=== PATIENT | female | born 1990 | race Caucasian/White ===

== ENCOUNTER 2018-12-27 11:18 | Emergency (ER) | payer BC, SELFPAY ==
[2018-12-27 11:19] VITALS: BP 142/99; PULSE 118; RESP 20; TEMP 37.9; O2SAT 99; BMI 30.1
--- NOTE | 2018-12-27 11:36 | HMH.EDUTC ---
[facility] [place] Impression: Strep pharyngitis Disposition: Home, Self-Care Condition on Discharge: Good Instructions: DI for Strep Throat Prescriptions: Amoxicillin/Potassium Clav [Amox-Clav 875-125 mg Tablet] 1 tab PO BID #20 tab Referrals: Provider,Referral, [Primary Care Provider] - Time of Disposition: 11:38 Medical Decision Making - Brian Inquiry Pt receiving controlled substance: No Vital Signs: 12/27/18 11:19 Temperature 100.2 F H Temperature Source Oral Pulse Rate [Left Radial] 118 H Respiratory Rate 20 Blood Pressure [Right Arm] 142/99 H Blood Pressure Mean [Right Arm] 113 Blood Pressure Source [Right Arm] Automatic Cuff Blood Pressure Position [Right Arm] Sitting 02 Sat by Pulse Oximetry 99 Oxygen Delivery Method Room Air - Lab Data Lab results reviewed: Yes: I reviewed the patient's lab results. [facility] - General Stated complaint: sore thoat, headache, ear pain Time Seen by Provider: 12/27/18 11:36 Mode of Arrival: Ambulatory Source of Information: Patient Limitations: No Limitations Description of Symptoms (Recalled from Triage Doc. by RN): sore throat, headache, ears hurt HEENT Symptoms (Recalled from RN notes): Yes Resp Symptoms (Recalled from RN notes): No Skin Symptoms (Recalled from RN notes): No MS Symptoms (Recalled from RN notes): No Functional Status (Recalled from RN notes): wnl - History of Present Illness Provider Complaint: Sore throat, headache and ear pain X 2 days. Has fever. Body aches and muscle soreness. No cough. No vomiting or diarrhea. Onset (ago): day(s) (2) Location: mouth Relieving factors: none Exacerbating factors: none Associated symptoms: fever/chills, malaise Treatments prior to arrival: none - Related Data Previous Rx's Medication Instructions Recorded Amoxicillin/Potassium Clav 1 tab PO BID #20 tab 12/27/18 [Amox-Clav 875-125 mg Tablet] Allergies Allergy/AdvReac Type Severity Reaction Status Date / Time No Known Allergies Allergy Verified 04/02/18 19:00 - Worker's Comp Is this a Worker's Comp case?: No [facility] History - Hepatitis A Screen Drug use history?: No High risk sexual behaviors?: No History of sexually transmitted infection?: No Currently employed?: No Childcare worker?: No Do you have indoor plumbing?: Yes Do you have electricity?: Yes Attestation statement:: This patient has been screened for Hepatitis A risk factors. I have reviewed the patient's past medical history: Yes Medical History: Denies:: Cancer, Diabetes Mellitus Type 1, Diabetes Mellitus Type 2, MRSA Amputation: No Fractures: No - Social History Educational Level: Completed High School Smoking Status: Current every day smoker Tobacco Type: cigarettes # Packs/Day (cigarettes): 1 Alcohol Intake: never Occupational Status: other Housing: house - Psychiatric History Expresses thoughts of harming self/others: None Suicide Plan Description: No Plan ROS Obtained: Yes All systems reviewed & no additional complaints - Constitutional Constitutional: Reports fever(s), Reports headache(s), Reports malaise - ENT Ears, Nose, Mouth, and Throat: Reports sore throat Physical Exam - General General appearance: alert, in no apparent distress - Head Head exam: atraumatic, normocephalic, normal inspection - Eye Eye exam: Present: normal appearance, PERRL, EOMI - ENT ENT exam: Present: normal exam, normal oropharynx, mucous membranes moist, TM's normal bilaterally, normal external ear exam - Expanded ENT Exam Throat exam: Present: tonsillar erythema, tonsillomegaly, tonsillar exudate - Neck Neck exam: Present: normal inspection, full ROM, trachea midline. Absent: meningismus, lymphadenopathy - Chest Chest inspection: Present: normal inspection, symmetric chest wall rise. Absent: tenderness - Respiratory Respiratory exam: Present: normal lung sounds bilaterally. Absent: respiratory distress - Cardiova
[2018-12-27 11:38] LABS: UTC Strep Screen (Rapid) Positive (Negative)
--- NOTE | 2018-12-27 11:39 | ED_ITS ---
[facility] – [place] Clinical Impression: Strep pharyngitis Disposition: Home, Self-Care Condition on Discharge: Good Instructions: DI for Strep Throat Prescriptions: Amoxicillin/Potassium Clav [Amox-Clav 875-125 mg Tablet] 1 tab PO BID #20 tab Referrals: Provider,Referral, [Primary Care Provider] - Time of Disposition: 11:38 Medical Decision Making - Brian Inquiry Pt receiving controlled substance: No Vital Signs: 12/27/18 11:19 Temperature 100.2 F H Temperature Source Oral Pulse Rate [Left Radial] 118 H Respiratory Rate 20 Blood Pressure [Right Arm] 142/99 H Blood Pressure Mean [Right Arm] 113 Blood Pressure Source [Right Arm] Automatic Cuff Blood Pressure Position [Right Arm] Sitting 02 Sat by Pulse Oximetry 99 Oxygen Delivery Method Room Air - Lab Data Lab results reviewed: Yes: I reviewed the patient's lab results. [facility] [place] HPI - General Stated complaint: sore thoat, headache, ear pain Time Seen by Provider: 12/27/18 11:36 Mode of Arrival: Ambulatory Source of Information: Patient Limitations: No Limitations Description of Symptoms (Recalled from Triage Doc. by RN): sore throat, headache, ears hurt HEENT Symptoms (Recalled from RN notes): Yes Resp Symptoms (Recalled from RN notes): No Skin Symptoms (Recalled from RN notes): No MS Symptoms (Recalled from RN notes): No Functional Status (Recalled from RN notes): wnl - History of Present Illness Provider Complaint: Sore throat, headache and ear pain X 2 days. Has fever. Body aches and muscle soreness. No cough. No vomiting or diarrhea. Onset (ago): day(s) (2) Location: mouth Relieving factors: none Exacerbating factors: none Associated symptoms: fever/chills, malaise Treatments prior to arrival: none - Related Data Previous Rx's Medication Instructions Recorded Amoxicillin/Potassium Clav 1 tab PO BID #20 tab 12/27/18 [Amox-Clav 875-125 mg Tablet] Allergies Allergy/AdvReac Type Severity Reaction Status Date / Time No Known Allergies Allergy Verified 04/02/18 19:00 - Worker's Comp Is this a Worker's Comp case?: No [facility] History - Hepatitis A Screen Drug use history?: No High risk sexual behaviors?: No History of sexually transmitted infection?: No Currently employed?: No Childcare worker?: No Do you have indoor plumbing?: Yes Do you have electricity?: Yes Attestation statement:: This patient has been screened for Hepatitis A risk factors. I have reviewed the patient's past medical history: Yes Medical History: Denies:: Cancer, Diabetes Mellitus Type 1, Diabetes Mellitus Type 2, MRSA Amputation: No Fractures: No - Social History Educational Level: Completed High School Smoking Status: Current every day smoker Tobacco Type: cigarettes # Packs/Day (cigarettes): 1 Alcohol Intake: never Occupational Status: other Housing: house - Psychiatric History Expresses thoughts of harming self/others: None Suicide Plan Description: No Plan ROS Obtained: Yes All systems reviewed & no additional complaints - Constitutional Constitutional: Reports fever(s), Reports headache(s), Reports malaise - ENT Ears, Nose, Mouth, and Throat: Reports sore throat Physical Exam - Ge
[2018-12-27 11:45] VITALS: BP 142/99; PULSE 118; RESP 20; TEMP 37.9; O2SAT 99
== END 2018-12-27 11:47 | disposition home or self-care (01) ==
PROVIDERS: Emergency Provider Physician Assistant
DX: J02.0 Streptococcal pharyngitis (principal); F17.210 Nicotine dependence, cigarettes, uncomplicated
CPT/HCPCS: 87880; 99201

== ENCOUNTER 2020-06-07 01:17 | Inpatient (IN) | payer BC, SELFPAY ==
[2020-06-07] VITALS (35 sets, daily range): BP systolic 111–206; BP diastolic 54–101; PULSE 49–97; RESP 14–20; TEMP 36.7–37; O2SAT 91–99; BMI 41.9
--- NOTE | 2020-06-07 01:51 | CT_ITS ---
PROCEDURE: CT HEAD/BRAIN WO CON CLINICAL INDICATION: headache persistent Headache, persistent headache, severe headache COMPARISON: No exams were available for comparison TECHNIQUE: Axial images obtained. All CT scans at the facility use one or more dose reduction, viz: automated exposure control, ma/kV adjustment per patient size (including targeted exams where dose is matched to indication, i.e. head), or iterative reconstruction technique. FINDINGS: No midline shift, mass effect, intracranial hemorrhage, hydrocephalus, or extra-axial fluid collection is evident. The calvarium has an unremarkable appearance. No mastoid effusion. No sinus air-fluid level evident. 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 IMPRESSION: No acute intracranial finding Dictated by: Daniel Aguirre MD 06/07/2020 11:39 Daniel Aguirre MD in [place] 06/07/2020 11:39
[2020-06-07 02:13] LABS: Basophils # 0.1 K/mm3 (0-0.2); Basophils % 0.5 % (0.1-2.0); Eosinophils # 0.2 K/mm3 (0.0-0.4); Eosinophils % 1.4 % (0.1-12.0); Hematocrit 34.3 % (37.0-47.0); Hemoglobin 11.1 g/dL (12.2-16.2); Lymphocytes # 1.9 K/mm3 (0.7-4.5); Lymphocytes % 16.7 % (10-50); Mean Corpuscular HGB Conc 32.5 g/dL (31.8-35.4); Mean Corpuscular Hemoglobin 28.9 pg (27.0-31.2); Mean Corpuscular Volume 88.9 fl (81-99); Mean Platelet Volume 8.8 fl (7.4-10.4); Monocytes # 0.6 K/mm3 (0.1-1.0); Neutrophils # 8.7 K/mm3 (1.8-7.8); Neutrophils % 76.5 % (37.0-80.0); Platelet Count 284 K/mm3 (142-424); Red Blood Count 3.86 M/mm3 (4.20-5.40); Red Cell Distribution Width 15.3 % (11.5-17.5); White Blood Count 11.4 K/mm3 (4.8-10.8)
[2020-06-07 02:13] LABS: Microscopic, Urine URINE MICROSCOPIC (MICROSCOPIC)
[2020-06-07 02:24] LABS: Alanine Aminotransferase 28 U/L (12-78); Albumin Level 3.2 g/dl (3.5-5.0); Albumin/Globulin Ratio 1.1 (1.1-1.8); Alkaline Phosphatase 165 U/L (38-126); Anion Gap 8.6 mEq/L (5-15); Aspartate Amino Transferase 27 U/L (14-36); Bilirubin,Total 0.2 mg/dl (0.2-1.3); Blood Urea Nitrogen 12 mg/dl (7-17); Calcium 8.6 mg/dl (8.4-10.2); Carbon Dioxide 26 mmol/L (22.0-30.0); Chloride 109 mmol/L (98-107); Creatinine Clearance Estimated 68 mL/min (50-200); Estimated Glomerular Filt Rate 73 ml/min (>60); GFR (African American) 88 ML/MIN (>60); Glucose 103 mg/dl (74-100); Potassium 3.6 mmoL/L (3.5-5.1); Sodium 140 mmol/L (136-145); Total Protein,Serum 6.2 g/dl (6.3-8.2)
[2020-06-07 02:25] LABS: Appearance,Urine CLOUDY (Clear); Bilirubin,Urine Negative (Negative); Blood, Urine 3+ (Negative); Color,Urine YELLOW (Yellow); Glucose,Urine (UA) Negative (Negative); Ketones,Urine Negative (Negative); Leukocyte Esterase,Urine 1+ (Negative); Nitrate,Urine Negative (Negative); Protein,Urine 1+ (Negative); Specific Gravity, Urine 1.025 (1.005-1.030); Urobilinogen,Urine 0.2 EU/dl (0.2)
[2020-06-07 02:26] LABS: Activated Partial Thrombo Time 27.4 seconds (23.6-34.0); INR 1.01 (0.9-1.1); Prothrombin Time 11.2 seconds (9.4-11.8)
[2020-06-07 02:30] LABS: RBC,Urine 20-50 #/hpf (0-3); WBC,Urine 50-100 #/hpf (0-3)
[2020-06-07 02:46] LABS: Creatinine,Urine Random 69 mg/dL (Not Estab.); Microalbumin/Creatinine Ratio 477.9
--- NOTE | 2020-06-07 02:58 | PC.NURSE ---
Khuhsbu speaking to at this time in regards to admission
--- NOTE | 2020-06-07 03:02 | HMH.EDGENADL ---
ED Disposition Clinical Impression: Headache Qualifiers: Intractability: intractable Pre-eclampsia Qualifiers: Trimester: unspecified trimester Qualified Code(s): O14.90 - Unspecified pre-eclampsia, unspecified trimester Disposition: Admitted As Inpatient Condition on Discharge: Undetermined Referrals: PCP,No [Primary Care Provider] - - Critical Care Critical Care Time: No Attestation: On 06/07/20, the high probability of a clinically significant, sudden or life threatening deterioration of the following system(s) required my full and direct attention, intervention and personal management. The time I documented below is in addition to time spent performing reported procedures but includes the following listed in this critical care notation. Medical Decision Making - Brian Inquiry Pt receiving controlled substance: No Vital Signs: 06/07/20 01:18 06/07/20 02:32 06/07/20 02:52 Temperature 98.5 F Temperature Source Oral Pulse Rate [Left Radial] 65 69 49 L Respiratory Rate 17 16 14 Blood Pressure [Right Arm] 168/87 H 161/91 H 158/94 H Blood Pressure Mean [Right Arm] 114 114 115 Blood Pressure Source [Right Arm] Automatic Cuff Automatic Cuff Automatic Cuff Blood Pressure Position [Right Arm] Supine Supine Supine 02 Sat by Pulse Oximetry 95 93 L 92 L Oxygen Delivery Method Room Air Room Air Room Air - Lab Data Lab Results 06/07/20 01:49: Urine Color Yellow, Urine Appearance Cloudy, Urine pH 7.0, Ur Specific [place] 1.025, Urine Protein 1+, Urine Glucose (UA) Negative, Urine Ketones Negative, Urine Blood 3+, Urine Nitrate Negative, Urine Bilirubin Negative, Urine Urobilinogen 0.2, Ur Leukocyte Esterase 1+ A, Urine RBC 20-50, Urine WBC 50-100, Ur Squamous Epith Cells 10-20 06/07/20 01:49: Urine Creatinine 69, Urine Microalbumin 329.800 H, Microalb/Creat Ratio 477.9 06/07/20 01:55: WBC 11.4 H, RBC 3.86 L, Hgb 11.1 L, Hct 34.3 L, MCV 88.9, MCH 28.9, MCHC 32.5, RDW 15.3, Plt Count 284, MPV 8.8, Neut % (Auto) 76.5, Lymph % (Auto) 16.7, Dale % (Auto) 5.0, Eos % (Auto) 1.4, Baso % (Auto) 0.5, Neut # (Auto) 8.7 H, Lymph # (Auto) 1.9, Dale # (Auto) 0.6, Eos # (Auto) 0.2, Baso # (Auto) 0.1 06/07/20 01:55: PT 11.2, INR 1.01, APTT 27.4 06/07/20 01:55: Sodium 140, Potassium 3.6, Chloride 109 H, Carbon Dioxide 26, Anion Gap 8.6, BUN 12, Creatinine 0.90, Estimated Creat Clear 68, Estimated GFR 73, Est GFR ( Amer) 88, Glucose 103 H, Calcium 8.6, Total Bilirubin 0.2, AST 27, ALT 28, Alkaline Phosphatase 165 H, Total Protein 6.2 L, Albumin 3.2 L, Globulin 3.0, Albumin/Globulin Ratio 1.1 Result diagrams: 06/07/20 01:55 06/07/20 01:55 Orders (Tests/Meds): ED MEDICATIONS Generic Name Dose Route Start Last Admin Trade Name Freq PRN Reason Stop Dose Admin Lactated Ringer's 1,000 mls @ 999 mls/hr 06/07/20 02:00 06/07/20 01:58 Lactated Ringer's 1000 Ml Bag IV 06/07/20 03:00 999 mls/hr .[id number] HERMAN Administration Magnesium Sulfate 2 gm/ Sodium 104 mls @ 100 mls/hr 06/07/20 02:31 06/07/20 02:37 Chloride IV 06/07/20 03:33 100 mls/hr ONCE ONE Administration Discontinued Medications Generic Name Dose Route Start Last Admin Trade Name Freq PRN Reason Stop Dose Admin Diphenhydramine HCl 50 mg 06/07/20 01:51 06/07/20 01:58 Diphenhydramine 50mg/Ml Vial IV 06/07/20 01:52 50 mg ONCE ONE Administration Hydralazine HCl 5 mg 06/07/20 02:30 06/07/20 02:37 Hydralazine 20mg/Ml Vial IV 06/07/20 02:31 5 mg ONCE ONE Administration Prochlorperazine Edisylate 10 mg 06/07/20 01:51 06/07/20 01:58 Prochlorperazine 10mg/2ml Vial IV 06/07/20 01:52 10 mg ONCE ONE Administration ORDERS Category Date Time Status CT head/brain wo con Stat Cat Scan 06/07/20 01:51 Taken Covid-19 IgG/IgM ([facility]) Stat Lab 06/07/20 02:58 Ordered Urine Culture Stat Micro 06/07/20 01:49 Received - CT Data CT Scan: Head Time Received: 02:[address] Reviewed: Yes: I have viewed the radi
--- NOTE | 2020-06-07 03:30 | INFXCTL.NOTE ---
Report received from MattRN
[2020-06-07 03:36] LABS: Coronavirus 19 IgG Antibody Negative (Negative)
[2020-06-07 03:37] LABS: Coronavirus 19 IgM Antibody Negative (Negative)
[2020-06-07 04:04] LABS: Magnesium 1.9 mg/dl (1.6-2.3)
[2020-06-07 04:11] LABS: Barbiturates Screen,Urine Negative ng/ml (<200); Benzodiazepines Screen,Urine Negative ng/ml (<200)
[2020-06-07 04:12] LABS: Amphetamine/Metha Screen,Urine Negative ng/ml (<1000); Cocaine Screen,Urine Negative ng/ml (<300)
[2020-06-07 04:13] LABS: Methadone Screen,Urine Negative ng/ml (<300)
[2020-06-07 04:14] LABS: Cannabinoid Screen,Urine Positive ng/ml (<50); Opiate Screen,Urine Negative ng/ml (<300)
[2020-06-07 04:15] LABS: Phencyclidine Screen,Urine Negative ng/ml (<25)
--- NOTE | 2020-06-07 05:03 | PC.NURSE ---
O2 applied at 2L NC to maintain O2 sats >90%
--- NOTE | 2020-06-07 05:05 | PC.NURSE ---
Hydralazoine given per protocol, see MAR
--- NOTE | 2020-06-07 06:04 | PC.NURSE ---
RT at bs to perform EKG
--- NOTE | 2020-06-07 06:06 | ECG_ITS ---
APPROVED REPORT Exam: Resting ECG HR:63 bpm ECG Measurements Heart Rate 63 AXES MS 160 P 49 QRSd 94 QRS 44 QT 460 T 35 QTc 470 Conclusion Normal sinus rhythm T wave abnormality, consider anterior ischemia Prolonged QT Abnormal ECG Electronically signed by : Byod Mccoy, 06/07/2020 21:07:25
--- NOTE | 2020-06-07 07:00 | PC.NURSE ---
Ice Pack provided for headache
--- NOTE | 2020-06-07 07:30 | PC.NURSE ---
Report given to Robe RN
--- NOTE | 2020-06-07 08:45 | P.CONPHA_ITS ---
[facility] Pharmacy VTE Monitoring - Patient Demographics Admission date: 06/07/20 Report Date: 06/07/20 Time: 08:45 Allergies/Adverse Reactions: Patient Allergies No Known Allergies Allergy (Verified 06/07/20 08:22) Height: 1.55 m Weight: 100.698 kg Patient Problems: Current Active Problems Headache (Acute) Pre-eclampsia (Acute) - VTE Risk Labs: VTE Related Lab Results Hgb 11.1 g/dL (12.2-16.2) L 06/07/20 01:55 Hct 34.3 % (37.0-47.0) L 06/07/20 01:55 Plt Count 284 K/mm3 (142-424) 06/07/20 01:55 PT 11.2 seconds (9.4-11.8) 06/07/20 01:55 INR 1.01 (0.9-1.1) 06/07/20 01:55 APTT 27.4 seconds (23.6-34.0) 06/07/20 01:55 BUN 12 mg/dl (7-17) 06/07/20 01:55 Creatinine 0.90 mg/dl (0.52-1.04) 06/07/20 01:55 Estimated Creat Clear 68 mL/min (50-200) 06/07/20 01:55 Was VTE Risk Assessment Performed: Yes VTE Score: 2 VTE Risk Level: Low Risk - Prophylaxis VTE Prophylaxis Ordered?: Yes Types of VTE Prophylaxis: TEDS Knee High Location of Applied Device: Bilateral Lower Extremeties
--- NOTE | 2020-06-07 08:46 | PC.NURSE ---
Addendum entered by Maira Dhaliwal RN 06/07/20 09:59: PT WITHOUT VISUAL DISTURBANCE Original Note: DTRS 1+ BILATERAL LEGS, 1+ CLONUS LEFT LEG. PT DENIES NAUSEA/VOMITING. NO EPIGASTRIC PAIN. PT REPORTS INCREASED HEADACHE WHEN ASSISTED TO BATHROOM. IMPROVED UPON RETURNING TO BED. PT AMBULATED WELL. NO NEEDS AT THIS TIME. CALL LIGHT WITHIN REACH
--- NOTE | 2020-06-07 09:48 | PC.NURSE ---
DR. SCHROEDER UPDATED ON PT AT THIS TIME, B/P HAVE REMAINED ABOUT THE SAME SINCE 0700, ORDERS FOR PROCARDIA XL 30MG PO EVERY 12 HOURS, ORDERS FOR PAIN MEDICATION FOR HEADACHE. STATES SHE WILL BE AROUND LATER TO SEE PT.
--- NOTE | 2020-06-07 11:17 | PC.NURSE ---
PT GIVEN HYDRALAZINE 5MG IV PUSH OVER 3 MINUTES FOR SBP OVER 160
--- NOTE | 2020-06-07 11:25 | PC.NURSE ---
1116 159/81 BEFORE HYDRALAZINE 1122 160/84 AFTER HYDRALAZINE WILL CONTINUE TO MONITOR
--- NOTE | 2020-06-07 12:00 | PC.NURSE ---
SHAMEKA LOREDO, [employer] AT BEDSIDE TO CONSULT WITH PT R/T HEADACHE
--- NOTE | 2020-06-07 12:02 | PC.NURSE ---
PT DENIES VISUAL DISTURBANCE, NO N/V OR EPIGASTRIC PAIN, DTR'S REMAIN 1+, NO CLONUS. LUNGS CTAB, NO EDEMA. HEADACHE CONTINUES, ANESTHESIA STATES NOT A CANDIDATE FOR BLOOD PATCH. AWAITING DR. SCHROEDER TO SEE PT. WILL CONTINUE TO MONITOR
--- NOTE | 2020-06-07 12:06 | PC.NURSE ---
1143 162/82 B/P AFTER 5MG HYDRALAZINE 1145 10MG HYDRALAZINE GIVEN PER PROTOCOL 1202 158/81 REPEAT B/P AFTER HYDRALAZINE. PT CONTINUES TO REPORT HEADACHE, PT OFFERED REPOSITIONING, STATES SHE DOES NOT WANT TO LIE FLAT, REPORTS SHORTNESS OF BREATH, REPORTS THIS STARTED BEFORE ADMISSION. LUNGS CTAB, O2 SAT 98% WITH O2 AT 2L/NC. WILL REPORT TO . [address] SCHROEDER, STAFF STATES SHE IS IN WITH A PATIENT, WILL HAVE HER CALL OB.
--- NOTE | 2020-06-07 12:32 | SW/DCPLANNER ---
Addendum entered by Almaz Dahl 06/07/20 14:24: This case did NOT meet criteria by Central Intake. Original Note: I have received a consult for this patient regarding: positive for THC and she is 11 days post . Patient delivered infant at [facility]. I did review patient records and she was positive for THC during some visits: 11/06/2019 and 12/19/2019. Patient is positive for THC now. I have reported this case to Central Intake ID# [id number].
--- NOTE | 2020-06-07 12:58 | XR_ITS ---
PROCEDURE: XR CHEST PORTABLE CLINICAL HISTORY: SOA shortness shortness of air COMPARISON: No exams were available for comparison FINDINGS: The cardiomediastinal silhouette and pulmonary vascularity are within normal limits. There is increased density in both lower lobes right greater than left consistent with bilateral lower lobe pneumonia. No obvious effusion. Upper lobes are clear. Mild upper thoracic curvature convex right. No acute bony abnormalities. IMPRESSION: Bilateral lower lobe pneumonia Dictated by: Daniel Aguirre MD 06/07/2020 14:22 Daniel Aguirre MD in [place] 06/07/2020 14:22
--- NOTE | 2020-06-07 13:04 | PC.NURSE ---
1234 DR. SCHROEDER AT BEDSIDE TO ASSESS PT. 1242 B/P 175/95 DR. SCHROEDER AT BEDSIDE, VERBAL ORDER FOR 20MG IV LABETALOL , GIVEN AT THIS TIME, SEE EMAR 1247 154/88 REPEAT B/P 1301 145/74, DR. SCHROEDER IN DEPT, NOTIFIED AT THIS TIME
--- NOTE | 2020-06-07 13:48 | HMH.HP ---
*Admission Date: 06/07/20 *Chief complaint: headache *History of present illness: 29 yo presented to [facility] ED early this am with complaint of severe headache. She is 11 days from a full term delivery by repeat CS (with tubal ligation) at [facility]. She reports that headache began while she was still admitted in the hospital, but she thought it was a side effect of the pain medication. After discharge, she continued to have headache, and began feeling short of breath a few days after discharge. She reports that both headache and dyspnea continued with episodic flare ups, but she did not call her primary OB and was waiting until her follow up appointment this week. No fever/chills, urinary symptoms, nausea/vomiting or diarrhea. She had no history of hypertension at time of delivery, or during care, although first visit at 12 wks showed borderline elevated bp 130s/80s. Upon arrival in the ED this morning, BP was 160-170/90-100 and she was complaining of severe headache. She was admitted with a presumptive diagnosis of preeclampsia, although labs were normal and here only clinical finding consistent with preeclampsia was the elevated blood pressure. While in the ED she also had a head CT, which was negative. Once she arrived to Labor and Delivery, it was noted that her O2 sat was in the low 90s and even high 80s, and she was placed on O2 by nasal canula. When I came to see the patient, she reported that she was unable to lie flat because of dyspnea, and appeared to have decreased breath sounds on both bases, most prominently decreased on the right. Chest XRay was ordered and she was dignosed with bilateral lower lobe pneumonia. She will be started on IV antibiotics and internal medicine consult obtained. BP has responded to po labetolol, and it is questionable at this point if she truly has preeclampsia, or if the elevated BP and headache are associated with her pneumonia, but as a conservative measure will continue magnesium sulfate until tomorrow am. [facility] History I have reviewed the patient's past medical history: Yes Medical History: Denies:: Cancer, Diabetes Mellitus Type 1, Diabetes Mellitus Type 2, MRSA *Have you ever received a pneumonia vaccine?: No *Have you received a flu vaccine this season?: No Other Surgeries: Yes: (x3) Amputation: No Fractures: No - *Social History Last grade of school completed: High school graduate Smoking Status: Current every day smoker Tobacco Type: cigarettes # Packs/Day (cigarettes): 1 Alcohol Intake: never *Occupational Status:: other Housing: other Household Members: family *Travel in the last 8 weeks: None Family Hx:: Hyperlipidemia, Hypertension Review of Systems - Review of Systems Review of systems:: pertinent systems reviewed and negative unless documented below Meds Home Medications Medication Instructions Recorded Confirmed Type No Known Home Medications 06/07/20 06/07/20 History Allergies Allergy/AdvReac Type Severity Reaction Status Date / Time No Known Allergies Allergy Verified 06/07/20 08:22 Exam Vital signs and Labs for Last 24 Hours: Temp Pulse Resp BP Pulse Ox 98.6 F 75 18 131/67 98 06/07/20 14:02 06/07/20 15:00 06/07/20 15:00 06/07/20 15:00 06/07/20 15:00 Laboratory Results - last 24 hr 06/07/20 01:49: Urine Color Yellow, Urine Appearance Cloudy, Urine pH 7.0, Ur Specific [place] 1.025, Urine Protein 1+, Urine Glucose (UA) Negative, Urine Ketones Negative, Urine Blood 3+, Urine Nitrate Negative, Urine Bilirubin Negative, Urine Urobilinogen 0.2, Ur Leukocyte Esterase 1+ A, Urine RBC 20-50, Urine WBC 50-100, Ur Squamous Epith Cells 10-20 06/07/20 01:49: Urine Creatinine 69, Urine Microalbumin 329.800 H, Microalb/Creat Ratio 477.9 06/07/20 01:49: Urine Opiates Screen Negative, Urine Methadone Screen Negative, Ur Barbituates Screen Negative, Ur Phencyclidine Scrn Negative, Ur Amphetamines Scree
--- NOTE | 2020-06-07 14:05 | PC.NURSE ---
radiology at bedside for cxr
--- NOTE | 2020-06-07 14:10 | PC.NURSE ---
PT REPORTS FEELING MUCH BETTER, PT ABLE TO SIT ON SIDE OF BED AND EAT REGULAR TRAY. PT REPORTS HEADACHE IS NEARLY GONE. DENIES VISUAL DISTURBANCE, NO N/V, NO EPIGASTRIC PAIN. DTR'S 1+, NO CLONUS, NO EDEMA
--- NOTE | 2020-06-07 14:47 | PC.NURSE ---
message left for dr. rodriguez, cxr shows bilateral lower lobe pneumonia. awaiting return call
--- NOTE | 2020-06-07 15:10 | PC.NURSE ---
DR. SCHROEDER UPDATED AT THIS TIME OF CXR RESULTS. ORDERS FOR BLOOD AND SPUTUM CULTURES. LEVAQUIN 750MG IVPB DAILY AND CEFIPIME 2 GRAMS EVERY 8 HOURS. R/V
--- NOTE | 2020-06-07 15:41 | PC.NURSE ---
SPUTUM AND BLOOD CULTURES COLLECTED, BEFORE ABX STARTED
--- NOTE | 2020-06-07 16:50 | PC.NURSE ---
PT HAS RESTED WELL THIS AFTERNOON, BLOOD PRESSURE BETTER CONTROLLED WITH MEDICATION CHANGES. PT TREATED FOR BILATERAL LOWER LOBE PNEUMONIA. INCENTIVE SPIROMETER GIVEN TO PT, USES APPROPRIATELY. CONTINUES TO WEAR O2 AT 2L/NC. LUNGS CTAB, DIMINISHED IN BILATERAL LOWER BASES. REPORTS INTERMITTENT HEADACHE, BUT MUCH IMPROVED, NO NEED FOR PAIN MEDICATION. DENIES VISUAL DISTURBANCE, NO N/V. NO EPIGASTRIC PAIN, NO EDEMA. HEART RATE REGULAR. NO CLONUS, DTR'S 1+. LTV INCISION C/D/I, NO VAGINAL BLEEDING. PT VOIDING WITHOUT DIFFICULTY. TOLERATED MAG INFUSION. WILL CONTINUE TO MONITOR
--- NOTE | 2020-06-07 19:09 | PC.NURSE ---
REPORT GIVEN TO Emma MOE RN AND Shirley BAKER RN
[2020-06-07 22:28] LABS: OB Protein,Urine (DIP) Negative (Negative)
[2020-06-08] VITALS (18 sets, daily range): BP systolic 106–181; BP diastolic 51–96; PULSE 65–82; RESP 16–18; TEMP 36.7–37.1; O2SAT 92–99
--- NOTE | 2020-06-08 04:44 | PC.NURSE ---
Pt re-assessed at this time, Pt has slept at intervals during this shift, Pt has used bedside commode with x2 assist, weakness present throughout this shift with some improvement. SOB noted upon exertion, no edema noted, BLT lung sounds are diminished in the bases. DTR's 1+ in lower extremities. Pt voiding large amounts without difficulty. Pt has complained of headache at times this shift, Pt medicated per SEP, Bowel sounds present in all 4 quadrants, Pt denies visual changes, N/V, epigastric pain. Pt has 2L/NC, B/P WNL on mag infusion. 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 Will continue to monitor
[2020-06-08 05:59] LABS: OB Protein,Urine (DIP) Negative (Negative)
--- NOTE | 2020-06-08 07:10 | PC.NURSE ---
Report received from Shirley Arthur RN.
--- NOTE | 2020-06-08 07:11 | PC.NURSE ---
Report given to Noreen Blankenship RN
[2020-06-08 07:42] LABS: Basophils % 0.3 % (0.1-2.0); Eosinophils # 0.2 K/mm3 (0.0-0.4); Eosinophils % 1.9 % (0.1-12.0); Hematocrit 33.4 % (37.0-47.0); Hemoglobin 10.4 g/dL (12.2-16.2); Lymphocytes # 1.2 K/mm3 (0.7-4.5); Lymphocytes % 12.3 % (10-50); Mean Corpuscular HGB Conc 31.1 g/dL (31.8-35.4); Mean Corpuscular Hemoglobin 27.9 pg (27.0-31.2); Mean Corpuscular Volume 89.6 fl (81-99); Mean Platelet Volume 8.4 fl (7.4-10.4); Monocytes # 0.4 K/mm3 (0.1-1.0); Monocytes % 4.3 % (1.7-9.3); Neutrophils # 7.8 K/mm3 (1.8-7.8); Neutrophils % 81.4 % (37.0-80.0); Platelet Count 280 K/mm3 (142-424); Red Blood Count 3.72 M/mm3 (4.20-5.40); Red Cell Distribution Width 15.4 % (11.5-17.5); White Blood Count 9.6 K/mm3 (4.8-10.8)
[2020-06-08 07:53] LABS: D-Dimer 1.53 ug/mL (0.15-8.0)
--- NOTE | 2020-06-08 08:00 | PC.NURSE ---
Routine assessment completed Pt. A&O X4, Lungs are diminished in the bases. Heart at RR. BS present x4, quad. non pitting edema noted in BLE, Bilateral Patellar reflexes at plus 1. Pt. reports headache at 1/10, denies wanting pain medication at this time. Pt. denies needs, will continue to monitor.
[2020-06-08 08:37] LABS: Activated Partial Thrombo Time 28.3 seconds (23.6-34.0); INR 0.98 (0.9-1.1); Prothrombin Time 10.9 seconds (9.4-11.8)
[2020-06-08 08:38] LABS: Alanine Aminotransferase 20 U/L (12-78); Anion Gap 10.2 mEq/L (5-15); Aspartate Amino Transferase 19 U/L (14-36); Blood Urea Nitrogen 7 mg/dl (7-17); Carbon Dioxide 26 mmol/L (22.0-30.0); Chloride 105 mmol/L (98-107); Creatinine Clearance Estimated 68 mL/min (50-200); Estimated Glomerular Filt Rate 73 ml/min (>60); GFR (African American) 88 ML/MIN (>60); Glucose 107 mg/dl (74-100); Magnesium 7.6 mg/dl (1.6-2.3); Potassium 3.2 mmoL/L (3.5-5.1); Sodium 138 mmol/L (136-145)
--- NOTE | 2020-06-08 08:58 | PC.NURSE ---
Spoke with Dr. Cadena regarding pt. Mag level at 7.6. Dr. Cadena states The mag should have been stopped at 24hours. Nurse informed MD, order does not read to stop at 24 hours. MD gave order to discontinue magnesium infusion. order read back and verified.
[2020-06-08 09:23] LABS: Magnesium 7.6 mg/dl (1.6-2.3)
[2020-06-08 09:29] LABS: Fibrinogen 330 mg/dL (204-500)
[2020-06-08 09:40] LABS: Alanine Aminotransferase 20 U/L (12-78); Albumin Level 2.9 g/dl (3.5-5.0); Alkaline Phosphatase 134 U/L (38-126); Aspartate Amino Transferase 21 U/L (14-36); Bilirubin,Direct 0.1 mg/dl (0.0-0.4); Bilirubin,Indirect 0.2 mg/dL (0.0-0.9); Bilirubin,Total 0.3 mg/dl (0.2-1.3); Bilirubin,Unconjugated 0.1 mg/dL (0.0-1.1); Total Protein,Serum 5.8 g/dl (6.3-8.2)
--- NOTE | 2020-06-08 10:30 | PC.NURSE ---
Dr. Cadena in with pt.
--- NOTE | 2020-06-08 10:55 | HMH.ACPN2 ---
Internal Medicine - PN: Subj *Date: 06/08/20 *Time: 11:02 Interval history: HD #2 Admitted with diagnosis of preeclampsia Following admission, additional evaluation revealed bilateral lower lobe pneumonia She was started on levoquin and cefipime Magnesium sulfate was discontinued after 24 hours Blood pressures have been stable, 130s/70s, but she is still on labetolol 100mg po TID SaO2 stable after discontinuation of nasal canula oxygen WBC 11.4 at admission and 9.6 this am Headache significantly improved since admission No new cmplaints Exam Vital signs and Labs for Last 24 Hours: Temp Pulse Resp BP Pulse Ox 98.0 F 68 18 137/77 95 06/08/20 08:00 06/08/20 09:00 06/08/20 09:00 06/08/20 09:00 06/08/20 09:00 Laboratory Results - last 24 hr 06/07/20 22:17: Urine Protein Negative 06/08/20 05:45: Urine Protein Negative 06/08/20 07:25: WBC 9.6, RBC 3.72 L, Hgb 10.4 L, Hct 33.4 L, MCV 89.6, MCH 27.9, MCHC 31.1 L, RDW 15.4, Plt Count 280, MPV 8.4, Neut % (Auto) 81.4 H, Lymph % (Auto) 12.3, [place] % (Auto) 4.3, Eos % (Auto) 1.9, Baso % (Auto) 0.3, Neut # (Auto) 7.8, Lymph # (Auto) 1.2, [place] # (Auto) 0.4, Eos # (Auto) 0.2, Baso # (Auto) 0.0 06/08/20 07:25: PT 10.9, INR 0.98, APTT 28.3, Fibrinogen 330 06/08/20 07:25: D-Dimer 1.53, Sodium 138, Potassium 3.2 L, Chloride 105, Carbon Dioxide 26, Anion Gap 10.2, BUN 7 D, Creatinine 0.90, Estimated Creat Clear 68, Estimated GFR 73, Est GFR ( Amer) 88, Glucose 107 H, Magnesium 7.6 H D, AST 19 D, ALT 20 D 06/08/20 07:25: Total Bilirubin 0.3, Direct Bilirubin 0.1, Conjugated Bilirubin 0.0, Indirect Bilirubin 0.2, Unconjugated Bilirubin 0.1, AST 21, ALT 20, Alkaline Phosphatase 134 H, Total Protein 5.8 L, Albumin 2.9 L 06/08/20 07:25: Magnesium 7.6 H I & O for Last 24 hours: Intake & Output 06/05/20 06/06/20 06/07/20 06/08/20 11:59 11:59 11:59 11:59 Intake Total 1200 / 1200 Output Total 1999 5750 / 5750 Balance -800 / -800 -5750 / -5750 Weight 222 lb Microbiology Reports for the Last 24 Hours: Microbiology 06/07/20 01:49 Urine,Clean Catch Urine Culture - Preliminary 06/07/20 15:13 Sputum - Expectorated Sputum Gram Stain - Final 06/07/20 15:13 Sputum - Expectorated Sputum Sputum Culture - Final - Constitutional no acute distress - *Routine HEENT Exam Head: Present: normocephalic Eye: Absent: conjunctival icterus, scleral injection ENT: Present: mucous membranes moist - *Routine Neck Exam Present: supple. Absent: lymphadenopathy - *Routine Respiratory Exam Present: decreased breath sounds - *Routine Cardiovascular Exam Present: RRR - *Routine Abdominal Exam Present: soft. Absent: tenderness, distended - *Routine Extremities Exam Absent: cyanosis, clubbing, edema - *Routine Skin Exam Present: warm. Absent: rash - *Routine Neurological Exam Present: alert, oriented X3 Assessment and Plan (1) Headache Status: Acute Qualifiers: Intractability: intractable Category: Medical Code(s): R51.9 - Headache, unspecified (2) Preeclampsia in period Status: Acute Category: Medical Code(s): O14.95 - Unspecified pre-eclampsia, complicating the puerperium (3) Lower lobe pneumonia Status: Acute Category: Medical Code(s): J18.9 - Pneumonia, unspecified organism (4) Tobacco abuse Status: Acute Category: Medical Code(s): Z72.0 - Tobacco use - Assessment and plan all Dx Assessment and Plan for all problems:: Continue IV antibiotics and po labetolol Internal medicine consult placed to confirm appropriate antbiotic choice and advise recommendations for any additional recommended therapeutics, length of IV antibiotics, as well as choice of po antibiotics at time of discharge PO FeSO4 for postop anemia
--- NOTE | 2020-06-08 10:59 | PC.NURSE ---
Pt. noted to be at 90% on RA, 2L O2 placed on pt. O2 sats up to 97%.
--- NOTE | 2020-06-08 12:31 | PC.NURSE ---
02 noted to be at 99-100%. O2 removed. Pt. at 97% on RA, will leave pt. on RA to see how she tolerates. Pt. Reports feeling stronger than this morning, denies headache, Patellar Reflexes noted to be at plus 1. Pt. sitting up on side of bed eating lunch, Pt. denies needs, will continue to monitor.
--- NOTE | 2020-06-08 13:59 | PC.NURSE ---
Pt. ambulated to bathroom with x2 assist. Tolerated well. pt. ambulated back to bed with assist x1 and x1 standby assist. Pt. tolerated well, pt. denies headache, and needs, will continue to monitor.
--- NOTE | 2020-06-08 15:55 | PC.NURSE ---
Routine Reassessment complete, Lungs CTA throughout, Pt. reports headache is gone, no pain at this time and she is feeling a lot better. No further acute changes noted. Heart remains at RR. BS Present x4 quad. non pitting edema noted to BLE, LTV Incision noted to be [employer], Edges approximated, scabbing noted, otherwise healing well. Patellar Reflexes at plus 2. Pt. denies needs, will continue to monitor.
--- NOTE | 2020-06-08 19:01 | PC.NURSE ---
Report given to Shirley Arthur RN.
[2020-06-08 20:16] LABS: Uric Acid 6.1 mg/dl (2.5-6.2)
--- NOTE | 2020-06-08 21:33 | PC.NURSE ---
Spoke with Dr. Cadena about Pt's B/P upon assessment 146/88, Labetalol given per MAR rechecked in 1 hour and was 161/87, Rechecked 20 minutes later to be 160's over 80's. Dr. Cadena asked for parameters on B/P to be notified. Orders given to notify MD for B/P being 160's/100, Medicate with a one time dose of Labetalol 100mg PO and recheck B/P.
--- NOTE | 2020-06-08 21:44 | PC.NURSE ---
Dr. Spencer notifed of Pt needing a consult from Dr. Cadena. Pt planning on discharging tomorrow
--- NOTE | 2020-06-08 23:13 | PC.NURSE ---
Addendum entered by Gian Arthur RN 06/08/20 23:15: B/P cuff placed on Pt to cycle every 15 minutes Original Note: Went in Pt's room to recheck B/P after PO labetalol was given. B/P 181/88, Pt complains of visual disturbances, Pt denies any pain at this time and is resting in the bed with lights off watching TV. Manual B/P taken 165/96, Pt reports face and chest being very warm and Pt's cheeks are red. Dr. Cadena called with no answer. will retry calling
--- NOTE | 2020-06-08 23:30 | PC.NURSE ---
Retried Dr. Cadena and no answer, message left to call back. Seizure pads placed on Pt's bed
[2020-06-08 23:32] LABS: Calcium 5.9 mg/dl (8.4-10.2)
[2020-06-09 00:08] VITALS: BP 157/76
--- NOTE | 2020-06-09 00:45 | PC.NURSE ---
Pt reports spots before her eyes and a headache starting, Tylenol given per MAR
--- NOTE | 2020-06-09 00:49 | PC.NURSE ---
Dr. Cadena called to report Pt's B/P being elevated an hour after labetalol was given, B/P's taken every 15 minutes, Pt reports spots before eyes and a slight headache. Orders received to give 5mg IV over 2 minutes, repeat B/P in 20 minutes if B/P is still elevated repeat with a dose of 10mg. Orders repeated and verified
[2020-06-09 01:00] VITALS: BP 153/72
[2020-06-09 01:24] VITALS: BP 135/65
[2020-06-09 04:30] VITALS: BP 136/65; PULSE 79; RESP 18; TEMP 36.9; O2SAT 95
--- NOTE | 2020-06-09 04:52 | PC.NURSE ---
Re-assessment done at this time, Pt has slept in intervals this shift. BLT lung sounds clear throughout, BLT bases with some crackles, Bowel sounds present in all 4 quadrants, B/P issues noted earlier in the shift, Pt was medicated per Dr. Cadena's orders and have resolved. pt denies visual disturbance at this time, no n/v, denies headache or SOA. DTR's noted to be +2 in BLE. IV saline locked, Pt walks to the bathroom by self, No needs voiced at this time
--- NOTE | 2020-06-09 07:13 | PC.NURSE ---
Report given to Shirley Mercado RN
[2020-06-09 08:00] VITALS: BP 128/62; RESP 20; O2SAT 98
--- NOTE | 2020-06-09 08:49 | XR_ITS ---
PROCEDURE: XR CHEST 2V CLINICAL HISTORY: SOA Shortness of air, smoker, post COMPARISON: CR XR CHEST PORTABLE from 06/07/2020 FINDINGS: The cardiomediastinal silhouette and pulmonary vascularity are within normal limits. No lobar consolidation or collapse. There is minimal blunting of the right CP angle suggesting small right effusion. No acute bony abnormalities. IMPRESSION: Small right pleural effusion otherwise negative Dictated by: Daniel Aguirre MD 06/09/2020 12:25 Daniel Aguirre MD in OV 06/09/2020 12:25
--- NOTE | 2020-06-09 08:50 | HMH.CONS ---
*Admission Date: 06/07/20 *Reason for consult:: Pneumonia *History of present illness: 29-year-old female patient presented to the emergency department with complaints of headache and shortness of breath for several weeks. She reports she has had a headache since she was discharged after full-term delivery in [place] 05/25/2020 and it increased to intolerable. She does report she has had some shortness of breath off and on since then, denies a productive cough, fever/chills/body aches or N/V/D. In the emergency department her blood pressure was 160-170/90-100, all lab work was within normal and head CT revealed no acute intracranial findings. Chest x-ray also revealed bilateral lower lobe pneumonia and Levaquin was started, sputum culture was obtained and IV Levaquin was started, she is not breast feeding. Medical team was consulted for treatment of pneumonia. Labetalol p.o. was started for her hypertension and blood pressure currently is 128/62 with room air saturations of 98%. She denies any chest congestion or productive cough. She does report she has no current primary care provider, encouraged to follow-up with [facility] primary care in [address] Spencer all orders per Dr. Spencer: Plan: 1. Two-view chest x-ray 2. COVID-19 PCR 3. May be discharged from our perspective with Levaquin 750 mg p.o. daily x5 days Thank you for allowing us this to participate in the patient's care and feel free to contact us for any further information [facility] History Medical History: Denies:: Cancer, Diabetes Mellitus Type 1, Diabetes Mellitus Type 2, MRSA *Have you ever received a pneumonia vaccine?: No *Have you received a flu vaccine this season?: No Other Surgeries: Yes: (x3) Amputation: No Fractures: No - *Social History Last grade of school completed: High school graduate Smoking Status: Current every day smoker Tobacco Type: cigarettes # Packs/Day (cigarettes): 1 Alcohol Intake: never *Occupational Status:: other Housing: other Household Members: family *Travel in the last 8 weeks: None Family Hx:: Hyperlipidemia, Hypertension Review of Systems - Constitutional Denies body ache(s), Denies chills - Eyes Denies blurry vision, Denies double vision - ENT Reports headache(s), Denies abnormal hearing, Denies dizziness - *Cardiovascular Reports shortness of breath, Denies chest pain - *Respiratory Reports cough, Reports shortness of breath, Denies chest congestion - *Gastrointestinal Denies heartburn, Denies difficulty swallowing - *Musculoskeletal Denies abnormal walking, Denies back pain - Integumentary/Breasts Denies change in skin color, Denies unusual bruising - *Neurologic Denies abnormal walking, Denies seizure-like activity - Psychiatric Denies lack of enjoyment, Denies behavioral changes - Endocrine Denies cold intolerance, Denies heat intolerance - Hematologic/Lymphatic Denies easy bleeding, Denies easy bruising - Allergic/Immunologic Denies lip swelling, Denies tongue swelling Meds Home Medications Medication Instructions Recorded Confirmed Type No Known Home Medications 06/07/20 06/07/20 History Allergies Allergy/AdvReac Type Severity Reaction Status Date / Time No Known Allergies Allergy Verified 06/07/20 08:22 Exam Vital signs and Labs for Last 24 Hours: Temp Pulse Resp BP Pulse Ox 98.5 F 79 20 128/62 98 06/09/20 04:30 06/09/20 04:30 06/09/20 08:00 06/09/20 08:00 06/09/20 08:00 Laboratory Results - last 24 hr 06/08/20 07:25: Fibrinogen 330 06/08/20 07:25: Uric Acid 6.1, Calcium 5.9 L D 06/08/20 07:25: Total Bilirubin 0.3, Direct Bilirubin 0.1, Conjugated Bilirubin 0.0, Indirect Bilirubin 0.2, Unconjugated Bilirubin 0.1, AST 21, ALT 20, Alkaline Phosphatase 134 H, Total Protein 5.8 L, Albumin 2.9 L 06/08/20 07:25: Magnesium 7.6 H I & O for Last 24 hours: Intake & Output 06/06/20 06/07/20 06/08/2005/23
--- NOTE | 2020-06-09 10:41 | PC.NURSE ---
1030 patient to xray at this time for 2 view chest xray. 1040 patient back from xray. sitting up in chair at this time.
[2020-06-09 12:00] VITALS: BP 143/73; PULSE 89; RESP 18
--- NOTE | 2020-06-09 12:15 | HMH.OBDCSM ---
General - General Admission date:: 06/07/20 Discharge date: 06/09/20 Hospital Course Hospital Course: Patient presented to the ED at [facility] approximately 11 days with complaint of headache and shortness of breath. Delivery by repeat CS at [facility]. Blood pressures were elevated in severe range during assessment in ED and she was admitted with a diagnosis of preeclampsia and started on IV magnesium sulfate. Additional evaluation revealed bilateral lower lobe pneumonia and she was started on Levaquin and Cefipime. Covid IgG and IgM both negative. Additional blood pressure management was necessary and she was started on labetolol 100mg po TID. Since admission, blood pressures have been stable and respiratory symptoms have significantly improved. She has been afebrile since admission, and oxygen saturation >95% on room air for over 24 hrs. She is discharged home on HD #3 in stable condition. She will continue po levaquin x 5 days, per recommendation of internal medicine consult. She will continue labetaolol and follow up with primary public transportation inspector in the next few days. Objective Vital signs: Temp Pulse Resp BP Pulse Ox 98.5 F 79 20 128/62 98 06/09/20 04:30 06/09/20 04:30 06/09/20 08:00 06/09/20 08:00 06/09/20 08:00 no acute distress - *Routine HEENT Exam Head: Present: normocephalic, atraumatic ENT: Present: mucous membranes moist - *Routine Respiratory Exam Present: CTA bilaterally - *Routine Cardiovascular Exam Present: RRR - *Routine Abdominal Exam Present: soft. Absent: tenderness, distended - *Routine Extremities Exam Absent: edema - *Routine Skin Exam Absent: rash - *Routine Neurological Exam Present: alert, oriented X3 - Routine Psychiatric Exam Present: normal affect Results Labs on day of discharge: Labs from last 24 hours 06/08/20 07:25 Uric Acid 6.1 Calcium 5.9 L D DS: Diagnosis - Discharge Diagnosis (1) Headache Status: Acute (2) Preeclampsia in period Status: Acute (3) Lower lobe pneumonia Status: Acute (4) Tobacco abuse Status: Acute Discharge Plan - Patient Discharge Instructions ACTIVITY: Continue current activity Patient Instructions: Pneumonia-Adult, DI for Pre-eclampsia, Preventing the Spread of Coronavirus Discharge Instructions - Follow up Plan Disposition: Home, Self-Group Home Medications: Home Medications Medication Instructions Recorded Confirmed Type Labetalol HCl [Normodyne 100mg 100 mg PO TID #90 tab 06/09/20 Rx tablet] levoFLOXacin [Levaquin 750mg 750 mg PO DAILY #5 tab 06/09/20 Rx tablet] Prescriptions/Medication Reconciliation: New Ferrous Sulfate [Ferrous Sulfate 325mg Tablet] 325 mg PO BID tablet Acetaminophen [Acetaminophen 325mg tab] 650 mg PO Q4HP PRN tablet PRN Reason: Mild Pain,Fever,Headache Ibuprofen [Motrin 400mg tablet] 800 mg PO Q6HP PRN tablet PRN Reason: Moderate Pain levoFLOXacin [Levaquin 750mg tablet] 750 mg PO DAILY #5 tab Labetalol HCl [Normodyne 100mg tablet] 100 mg PO TID #90 tab - Problem Reconciliation Problems Reviewed?: Yes
== END 2020-06-09 13:30 | disposition home or self-care (01) | DRG 776 ==
LOC: ER 03:15 → OB 03:47
PROVIDERS: Admitting Provider Obstetrics & Gynecology; Emergency Provider Student in an Organized Health Care Education/Training Program; Visit Provider Obstetrics & Gynecology
DX: O14.95 Unspecified pre-eclampsia, complicating the puerperium (principal); J18.9 Pneumonia, unspecified organism; Z72.0 Tobacco use
CPT/HCPCS: 36415; 70450; 71045; 71046; 80048; 80053; 80076; 80305; 81001; 81002; 82043; 82570; 83735; 84450; 84460; 84550; 85025; 85378; 85384; 85610; 85730; 86328; 87040; 87086; 87205; 93005; 94761; 96365; 96367; 96375; 99284; J1956; U0003

== ENCOUNTER 2021-07-21 13:32 | Emergency (ER) | payer SELFPAY ==
[2021-07-21 13:52] VITALS: BP 141/88; PULSE 67; RESP 20; TEMP 36.9; O2SAT 99; BMI 31.1
[2021-07-21 14:13] LABS: UTC Influenza A Antigen Negative (Negative); UTC Influenza B Antigen Negative (Negative)
[2021-07-21 14:14] LABS: UTC Strep Screen (Rapid) Negative (Negative)
--- NOTE | 2021-07-21 14:32 | HMH.EDUTC ---
[facility] [place] Disposition Clinical Impression: URI (upper respiratory infection) Qualifiers: URI type: unspecified URI Qualified Code(s): J06.9 - Acute upper respiratory infection, unspecified Disposition: Home, Self-Care Condition on Discharge: Good Instructions: Sore Throat, DI for Nausea -- Adult, Nausea and Vomiting-Adult Additional Instructions: *Monitor Temp, Over the counter Motrin or Tylenol as directed/as needed Tylenol every 4 hours and Motrin every 6 hours (as long as your family doctor has told you that you can take it) for fever or pain. and straight to ER if unable to lower temp less than 101.0 after medication given *Warm salt water gargles may help to soothe the throat *Throat Lozenges *Warm fluids like tea with honey may help to soothe the throat *Sleep elevated *Humidifier/Vaporizer Your throat swab was sent for culture. Those results are typically sent to your primary care. Be sure to follow up in 2-3 days with your family doctor/primary care physician if no improvement so they can review those result and treat if necessary. If you don?t have a primary care doctor, I recommend you get one but in the mean time, you will have to return to a walk in clinic Follow up IMMEDIATELY for new or worsening symptoms or no Noticeable improvement over the next 48-72 hours. 911 for difficulty breathing or swallowing You were tested for today for COVID19 your test result should be back in the next 24-48 hours, you may check your results on the [facility] My Health Portal if you have trouble logging on you may call You was given a handout with instructions for Self Quarantine and Self isolation for while you wait on test results and what to do if they are positive If you are positive the Health Dept will be contacting you also Make sure to take your Vitamins Vit. C Vit D and Zinc if you can take them Prescriptions: Cefdinir [Omnicef 300mg Capsule] 300 mg PO BID #20 cap Transmission Status: Pending to [facility] Ondansetron [Zofran 4mg ODT] 4 mg PO TIDP PRN #10 tab PRN Reason: Nausea Transmission Status: [facility] Referrals: Provider,Referral, [Primary Care Provider] - As needed Time of Disposition: 14:38 Medical Decision Making - Brian Inquiry Pt receiving controlled substance: No Brian was queried for this patient: No Vital Signs: 07/21/21 13:52 Temperature 98.5 F Temperature Source Oral Pulse Rate [Left] 67 Respiratory Rate 20 Blood Pressure [Right Arm] 141/88 H Blood Pressure Mean [Right Arm] 105 02 Sat by Pulse Oximetry 99 - Lab Data Lab results reviewed: Yes: I reviewed the patient's lab results. Lab Results 07/21/21 13:53: Strep Scn Rapid Clinic Negative 07/21/21 13:53: Influenza Type A Ag Negative, Influenza Type B Ag Negative Orders (Tests/Meds): ORDERS Category Date Time Status Covid-19 Nasal PCR ([facility]) Routine Lab 07/21/21 13:48 Received Strep Screen Confirmation Routine Micro 07/21/21 13:53 Received [facility] UTC HPI - General Stated complaint: sore throat,headache,congestion,vomiting Time Seen by Provider: 07/21/21 14:32 Mode of Arrival: Ambulatory Source of Information: Patient Limitations: No Limitations Description of Symptoms (Recalled from Triage Doc. by RN): pt c/o a BARNES, sore throat and body aches. x4 days. HEENT Symptoms (Recalled from RN notes): Yes (sore throat and BARNES) Resp Symptoms (Recalled from RN notes): No Skin Symptoms (Recalled from RN notes): No MS Symptoms (Recalled from RN notes): No Functional Status (Recalled from RN notes): wnl - History of Present Illness Provider Complaint: Patient states that she hasnt felt well for about 4 days States that she has been having sore throat, headache, body aches and chills States that today she was still feeling bad so she came into get checked out to see if she may have flu or strep throat - Related Data Previous Rx's Medication Instructions Recorded Labetalol HCl [Normodyne
[2021-07-21 14:47] VITALS: BP 141/88; PULSE 67; RESP 20; TEMP 36.9
== END 2021-07-21 14:48 | disposition home or self-care (01) ==
PROVIDERS: Emergency Provider Nurse Practitioner
DX: J06.9 Acute upper respiratory infection, unspecified (principal); Z20.822 Contact with and (suspected) exposure to COVID-19; F17.210 Nicotine dependence, cigarettes, uncomplicated
CPT/HCPCS: 87804; 87880; 99202; C9803; G0463; U0003; U0005

== ENCOUNTER 2023-10-04 11:15 | Emergency (ER) | payer SELFPAY ==
[2023-10-04 11:25] VITALS: BP 117/62; PULSE 74; RESP 20; TEMP 36.8; O2SAT 96; BMI 36.9
[2023-10-04 11:32] LABS: UTC Strep Screen (Rapid) Positive (Negative)
--- NOTE | 2023-10-04 11:32 | EXP.UTC ---
Discharge Plan Disposition Patient Disposition: Home, Self-Care Condition: Good Prescriptions Prescriptions: New amoxicillin 875 mg tablet 875 mg PO Q12H Qty: 20 0RF methylprednisolone 4 mg Tablets,Dose Pack 4 mg PO DIRECTED 6 Days Qty: 21 0RF Rx Instructions: Take 1 pack as directed for 6 days albuterol sulfate [Ventolin HFA] 90 mcg/actuation HFA aerosol inhaler 2 puff inhalation Q6H PRN (Reason: shortness of breath or wheezing) Qty: 6.7 0RF vsmuehgcyetksjb-rrgulnvdt-HT [Bromfed DM] 2-30-10 mg/5 mL Syrup 5 ml PO Q6H PRN (Reason: Cough) Qty: 240 0RF Referrals Follow up/Referrals: Provider,Referral, MD [Primary Care Provider] - See instructions Activity Restrictions/Add. Instructions Additional Instructions/Restrictions: Drink plenty of fluids. Take tylenol or ibuprofen for pain or fever. Take the medications as directed. Follow up with your regular doctor. GO TO THE ER FOR ANY WORSENING SYMPTOMS Throw your tooth brush away and get a new one. Clinical Impressions Clinical Impression: Strep pharyngitis, Asthma exacerbation Stand Alone Forms Stand Alone Forms: Work/School Release Instructions Patient Instructions: DI for Strep Throat, Strep Throat Discharge ED Provider: Sam Frazier [facility] General Stated complaint: sore throat,body aches Mode of Arrival: Ambulatory Source of Information: Patient Limitations: No Limitations Time Seen by Provider: 10/04/23 11:32 Description of Symptoms (Recalled from Triage Doc. by RN): PATIENT C/O BODY ACHES, SORE THROAT, COUGH, FEVER, HEADACHE AND RUNNY NOSE. SHE STATES SHE HAS BEEN SICK FOR THE PAST 4 WEEKS (HAD FLU THEN BRONCHITIS), BUT SORE THROAT STARTED LAST NIGHT HEENT Symptoms (Recalled from RN notes): Yes Resp Symptoms (Recalled from RN notes): Yes Skin Symptoms (Recalled from RN notes): No MS Symptoms (Recalled from RN notes): No Functional Status (Recalled from RN notes): WNL History of Present Illness Provider Complaint: She states that since yesterday she has had sore throat, low grade fever, body aches, fatigue, malaise, chest congestion and cough. She has had nausea, but no vomiting, diarrhea or abdominal pain. She has a history of asthma and she states that she feels like her asthma symptoms are beginning. She does not have a rescue inhaler at this time. Related Data Previous Rx's Medication Instructions Recorded albuterol sulfate 90 mcg/actuation 2 puff inhalation Q6H PRN 10/04/23 aerosol inhaler (Ventolin HFA) shortness of breath or wheezing #6.7 grams amoxicillin 875 mg tablet 875 mg PO Q12H #20 tabs 10/04/23 yphkbwbwyfwklge-ypbnwfyafwlbsds-WY 5 ml PO Q6H PRN Cough #240 mL 10/04/23 2 mg-30 mg-10 mg/5 mL oral syrup (Bromfed DM) methylprednisolone 4 mg tablets in 4 mg PO DIRECTED 6 days #21 tabs 10/04/23 a dose pack Allergies Allergy/AdvReac Type Severity Reaction Status Date / Time No Known Allergies Allergy Verified 06/07/20 08:22 Worker's Comp Is this a Worker's Comp case?: No [facility] Disclaimer: The information contained in this section may have been updated after the patient was seen, as this information can be updated by other users. Surgical History (Updated 10/04/23 @ 11:30 by Rosy Rosario RN) History of section Social History Smoking Status: Current every day smoker tobacco type: cigarettes packs per day: 1 second hand exposure: Yes alcohol intake: never current occupational status: other Travel in the last 8 weeks: None household members: family housing: other current occupational exposures/hazards: No ROS Obtained: Yes All systems reviewed & no additional complaints except as documented Constitutional Constitutional: Reports chills and Reports fever(s) Eyes Eyes: Denies eye discharge ENT Ears, Nose, Mouth, and Throat: Reports as per HPI Cardiovascular Cardiovascular: Denies chest pain Respiratory Respiratory: Denies chest congestion and Reports cough Gastrointestinal Gastrointestingal: Reports nausea; Denies abdominal pain, constipation, cramping, diarrhea or vomiting Musculoskeletal Musculoskeletal: Denies arthralgias Integumentary/Breasts Skin/Breast: Denies rash Neurologic Neurologic: Denies paresthesias Physical Exam General General appearance: alert and in no apparent distress Head Head exam: atraumatic, normocephalic and normal inspection Eye Eye exam: Present normal appearance, PERRL and EOMI ENT ENT exam: Present mucous membranes moist and normal external ear exam Expanded ENT Exam TM/Canal exam: Bilateral TM: erythema and bulging Nose exam: Absent sinus tenderness Mouth exam: Present normal external inspection; Absent drooling Teeth exam: Present normal inspection Throat exam: Present tonsillar erythema, tonsillomegaly and tonsillar exudate Neck Neck exam: Present normal inspection, full ROM and trachea midline; Absent tenderness, meningismus or lymphadenopathy Chest Chest inspection: Present normal inspection and symmetric chest wall rise; Absent tenderness Respiratory Respiratory exam: Present normal lung sounds bilaterally; Absent respiratory distress, wheezes, stridor or accessory muscle use Cardiovascular Cardiovascular exam: Present regular rate and normal rhythm; Absent systolic murmur or diastolic murmur Abdominal Exam Abdominal exam: Present soft and normal bowel sounds; Absent distention, tenderness, guarding, rebound or rigidity Extremities Exam Extremities exam: Present normal inspection and normal capillary refill; Absent calf tenderness Back Exam Back exam: Present normal inspection and full ROM; Absent tenderness, CVA tenderness (R) or CVA tenderness (L) Neurological Exam Neurological exam: Present alert, oriented X3 and CN II-XII intact Psychiatric Psychiatric exam: Present normal affect and normal mood Skin Skin exam: Present warm, dry, intact and normal color Medical Decision Making Medical Records Medical records reviewed: No I reviewed the patient's medical records. Brian Inquiry Pt receiving controlled substance: No Vital Signs: 10/04/23 11:25 Temperature 98.3 F Temperature Source Oral Pulse Rate [Right Brachial] 74 Respiratory Rate 20 Blood Pressure [Right Arm] 117/62 Blood Pressure Mean [Right Arm] 80 Blood Pressure Source [Right Arm] Automatic Cuff Blood Pressure Position [Right Arm] Sitting 02 Sat by Pulse Oximetry 96 Oxygen Delivery Method Room Air Lab Data Lab results reviewed: Yes I reviewed the patient's lab results.
[2023-10-04 11:33] VITALS: BP 117/62; PULSE 74; RESP 20; TEMP 36.8; O2SAT 96
== END 2023-10-04 12:11 | disposition home or self-care (01) ==
PROVIDERS: Emergency Provider Nurse Practitioner Family
DX: J45.901 Unspecified asthma with (acute) exacerbation (principal); J02.0 Streptococcal pharyngitis; R05.9 Cough, unspecified; R50.9 Fever, unspecified; R51.9 Headache, unspecified; R53.83 Other fatigue; R53.81 Other malaise; F17.210 Nicotine dependence, cigarettes, uncomplicated
CPT/HCPCS: 87880; 99212; 99214; G0463

== ENCOUNTER 2023-10-13 21:13 | Emergency (ER) | payer OTHER, SELFPAY ==
[2023-10-13 21:14] VITALS: BP 151/95; PULSE 65; RESP 17; TEMP 36.9; O2SAT 97; BMI 33.0
--- NOTE | 2023-10-13 22:16 | HMH.EDGENADL ---
Discharge Plan Disposition Patient Disposition: Home, Self-Care Chief Complaint: Medical Clearance Prescriptions Prescriptions: No Action amoxicillin 875 mg tablet 875 mg PO Q12H Qty: 20 0RF methylprednisolone 4 mg Tablets,Dose Pack 4 mg PO DIRECTED 6 Days Qty: 21 0RF Rx Instructions: Take 1 pack as directed for 6 days albuterol sulfate [Ventolin HFA] 90 mcg/actuation HFA aerosol inhaler 2 puff inhalation Q6H PRN (Reason: shortness of breath or wheezing) Qty: 6.7 0RF ewcrrfnrdwfkozl-bpjtnedrg-KJ [Bromfed DM] 2-30-10 mg/5 mL Syrup 5 ml PO Q6H PRN (Reason: Cough) Qty: 240 0RF Referrals Follow up/Referrals: Provider,Referral, MD [Primary Care Provider] - See instructions Clinical Impressions Clinical Impression: Medical clearance for incarceration Discharge ED Provider: Ephraim Mejia General Adult HPI General Chief complaint: Medical Clearance Stated complaint: medical clearance Time Seen by Provider: 10/13/23 21:40 Mode of Arrival: Ambulatory Source of Information: Patient and Law Enforcement Limitations: No Limitations Description of Symptoms (Recalled from ER Triage Doc. by RN): Patient arrived in police custody. Patient reports no complaints, pain, or injury. Medical clearance. History of Present Illness HPI narrative: Patient is a 32-year-old female who presents in police custody for medical clearance. She reports that she got arrested for marijuana intoxication. She has no acute complaints that require medical evaluation at this time. Related Data Previous Rx's Medication Instructions Recorded albuterol sulfate 90 mcg/actuation 2 puff inhalation Q6H PRN 10/04/23 aerosol inhaler (Ventolin HFA) shortness of breath or wheezing #6.7 grams amoxicillin 875 mg tablet 875 mg PO Q12H #20 tabs 10/04/23 ondymgbztpmivwa-rkiiohvveebdjan-ZW 5 ml PO Q6H PRN Cough #240 mL 10/04/23 2 mg-30 mg-10 mg/5 mL oral syrup (Bromfed DM) methylprednisolone 4 mg tablets in 4 mg PO DIRECTED 6 days #21 tabs 10/04/23 a dose pack Allergies Allergy/AdvReac Type Severity Reaction Status Date / Time No Known Allergies Allergy Verified 06/07/20 08:22 [facility] Disclaimer: The information contained in this section may have been updated after the patient was seen, as this information can be updated by other users. Surgical History (Updated 10/04/23 @ 11:30 by Rosy Rosario RN) History of section Social History Smoking Status: Current every day smoker tobacco type: cigarettes packs per day: 1 second hand exposure: Yes alcohol intake: never current occupational status: other Travel in the last 8 weeks: None household members: family housing: other current occupational exposures/hazards: No ROS Obtained: Yes Systems reviewed as appropriate & no additional complaints except as documented Physical Exam General General appearance: alert and in no apparent distress Head Head exam: atraumatic and normocephalic ENT ENT exam: Present mucous membranes moist Neck Neck exam: Present normal inspection Chest Chest inspection: Present symmetric chest wall rise Respiratory Respiratory exam: Absent respiratory distress Cardiovascular Cardiovascular exam: Present regular rate Abdominal Exam Abdominal exam: Present soft; Absent tenderness Extremities Exam Extremities exam: Present normal inspection Neurological Exam Neurological exam: Present alert Psychiatric Psychiatric exam: Present normal affect Skin Skin exam: Present warm and dry Medical Decision Making Brian Inquiry Pt receiving controlled substance: No Vital Signs: 10/13/23 21:14 Temperature 98.4 F Temperature Source Oral Pulse Rate [Left Radial] 65 Respiratory Rate 17 Blood Pressure [Left Arm] 151/95 H Blood Pressure Mean [Left Arm] 113 Blood Pressure Source [Left Arm] Automatic Cuff Blood Pressure Position [Left Arm] Sitting 02 Sat by Pulse Oximetry 97 Oxygen Delivery Method Room Air Medical Decision Narrative: In summary patient is a 32-year-old female presents in police custody for medical clearance. Patient has no acute complaints, there is no history or physical findings that would warrant medical evaluation with workup or imaging at this time although it was considered. Patient is medically cleared and is appropriate for discharge at this time. Critical Care Critical Care Time Critical Care Time: No
[2023-10-13 22:23] VITALS: BP 170/89; PULSE 62; RESP 18; TEMP 36.8; O2SAT 99
== END 2023-10-13 22:24 | disposition home or self-care (01) ==
PROVIDERS: Emergency Provider Emergency Medicine
DX: Z00.8 Encounter for other general examination (principal)
CPT/HCPCS: 99281

== ENCOUNTER 2023-11-15 13:46 | Outpatient (CLI) | payer OTHER, SELFPAY ==
[2023-11-15 14:31] LABS: Basophils % 0.5 % (0.1-2.0); Eosinophils # 0.1 K/mm3 (0.0-0.4); Eosinophils % 1.3 % (0.1-12.0); Hematocrit 30.1 % (37.0-47.0); Hemoglobin 9.6 g/dL (12.2-16.2); Lymphocytes # 2.4 K/mm3 (0.7-4.5); Lymphocytes % 30.7 % (10-50); Mean Corpuscular HGB Conc 31.7 g/dL (31.8-35.4); Mean Corpuscular Hemoglobin 23.3 pg (27.0-31.2); Mean Corpuscular Volume 73.6 fl (81-99); Mean Platelet Volume 9.2 fl (7.4-10.4); Monocytes # 0.4 K/mm3 (0.1-1.0); Monocytes % 5.6 % (1.7-9.3); Neutrophils # 4.8 K/mm3 (1.8-7.8); Platelet Count 242 K/mm3 (142-424); Red Cell Distribution Width 19.1 % (11.5-17.5); White Blood Count 7.8 K/mm3 (4.8-10.8)
== END 2023-11-15 23:59 | disposition home or self-care (01) ==
LOC: LAB 13:48
PROVIDERS: Visit Provider Obstetrics & Gynecology
DX: N93.9 Abnormal uterine and vaginal bleeding, unspecified (principal)
CPT/HCPCS: 36415; 85025

== ENCOUNTER 2023-11-20 15:46 | Outpatient (CLI) | payer OTHER, SELFPAY ==
--- NOTE | 2023-11-20 15:47 | US_ITS ---
PROCEDURE: US TRANSVAGINAL CLINICAL INDICATION: AUB COMPARISON: No exams were available for comparison FINDINGS: Transvaginal sonographic images of the pelvis were obtained. UTERUS: 9.5cm x 6.3cmx 5.4cm retroflexed with a combined endometrial thickness of 24.7mm. There are multiple small nabothian cysts in the cervix. LEFT OVARY: 4.5 cmx4.2cmx2.7cm with a volume of 26.7ml. There is a follicle in the left ovary measuring 4.2 cm x 2.4 cm x 3.3 cm. There is a trace amount of fluid around the left ovary. RIGHT OVARY: 4.4cmx 2.7 cmx2.1cm with a volume of 12.9ml. There is a follicle in the right ovary measuring 2.8 cm x 1.7 cm x 2.0 cm. Both ovaries are seen and appear normal. Doppler flow to both ovaries are seen. There is a small amount of fluid in the cul-de-sac. IMPRESSION: 1. Retroflexed bulky uterus. There are multiple small nabothian cysts. 2. The endometrium is markedly thickened at 24.7 mm. Consider endometrial sampling. 3. Both ovaries are seen appear normal. There is a 4.2 cm follicle on the left ovary and a 2.8 cm follicle in the right ovary. 4. There is a small amount of fluid in the cul-de-sac. There is a small amount of fluid around the left ovary. Dictated by: Derick Francis MD 11/20/2023 16:42 Derick Francis MD in OV 11/20/2023 16:42
== END 2023-11-20 23:59 | disposition home or self-care (01) ==
LOC: RAD 15:47
PROVIDERS: PCP Obstetrics & Gynecology; Visit Provider Obstetrics & Gynecology
DX: N93.9 Abnormal uterine and vaginal bleeding, unspecified (principal)
CPT/HCPCS: 76830

== ENCOUNTER 2024-02-27 11:46 | Outpatient (CLI) | payer OTHER, SELFPAY ==
[2024-02-27 12:07] LABS: Basophils % 0.4 % (0.1-2.0); Eosinophils # 0.1 K/mm3 (0.0-0.4); Eosinophils % 1.5 % (0.1-12.0); Hematocrit 33.8 % (37.0-47.0); Hemoglobin 10.5 g/dL (12.2-16.2); Lymphocytes # 2.2 K/mm3 (0.7-4.5); Lymphocytes % 24.4 % (10-50); Mean Corpuscular Hemoglobin 22.7 pg (27.0-31.2); Mean Corpuscular Volume 73.2 fl (81-99); Mean Platelet Volume 10.4 fl (7.4-10.4); Monocytes # 0.5 K/mm3 (0.1-1.0); Monocytes % 5.4 % (1.7-9.3); Neutrophils # 6.3 K/mm3 (1.8-7.8); Neutrophils % 68.3 % (37.0-80.0); Platelet Count 253 K/mm3 (142-424); Red Blood Count 4.61 M/mm3 (4.20-5.40); Red Cell Distribution Width 18.8 % (11.5-17.5); White Blood Count 9.2 K/mm3 (4.8-10.8)
[2024-02-27 12:34] LABS: Alanine Aminotransferase 17 U/L (12-78); Albumin Level 3.7 g/dl (3.5-5.0); Albumin/Globulin Ratio 1.2 (1.1-1.8); Alkaline Phosphatase 72 U/L (38-126); Aspartate Amino Transferase 23 U/L (14-36); Bilirubin,Total 0.3 mg/dl (0.2-1.3); Blood Urea Nitrogen 11 mg/dl (7-17); Calcium 8.8 mg/dl (8.4-10.2); Carbon Dioxide 24 mmol/L (22.0-30.0); Chloride 108 mmol/L (98-107); Estimated Glomerular Filt Rate 114 ml/min (>60); GFR (African American) 138 ML/MIN (>60); Globulin 3.2 g/dL (1.3-3.2); Glucose 99 mg/dl (74-100); Sodium 139 mmol/L (136-145); Total Protein,Serum 6.9 g/dl (6.3-8.2)
[2024-02-27 12:55] LABS: HCG,Quantitative < 2 mIU/ml (0-5.42)
== END 2024-02-27 23:59 | disposition home or self-care (01) ==
LOC: LAB 11:47
PROVIDERS: PCP Internal Medicine; Visit Provider Obstetrics & Gynecology
DX: N93.9 Abnormal uterine and vaginal bleeding, unspecified (principal)
CPT/HCPCS: 36415; 80053; 84702; 85025; 86850

== ENCOUNTER 2024-02-28 06:29 | Observation (INO) | payer OTHER, SELFPAY ==
[2024-02-26 13:19] VITALS: BMI 39.1
[2024-02-28] VITALS (22 sets, daily range): BP systolic 117–147; BP diastolic 53–94; PULSE 47–82; RESP 14–26; TEMP 36.2–43; O2SAT 91–100
--- NOTE | 2024-02-28 06:57 | EXP.ANES.CKL ---
[facility] Disclaimer: The information contained in this section may have been updated after the patient was seen, as this information can be updated by other users. Medical History Gestational HTN Anemia No significant medical problems Surgical History History of section Family History Other Alcoholism Asthma Cancer Coronary artery disease Diabetes Hypertension Stroke Thyroid disorder Social History (Updated 02/28/24 @ 06:32 by Yusra Daigle RN) Smoking Status: Current every day smoker tobacco type: cigarettes packs per day: 1 second hand exposure: Yes alcohol intake: never substance use type: denies use current occupational status: employed Travel in the last 8 weeks: None household members: family housing: other current occupational exposures/hazards: No [facility] [place] Anesthesia Checklist Patient Identification Patient Identification: Arm Band and Family Structural Data Admitted From: Home Planned Operative Procedure/s: LAVH, Removal of rmaining fallopian tubes, cyst, Possible MAX. Consent for Planned Operative Procedure(s) Verified: Yes Verified Documents: Surgical Consent and History and Physical NPO Status Verified Time NPO: 00:00 Additional verifications Patient : No Anesthesia Reactions: No Hx Blood Transfusions: No Blood Transfusion Reaction: No Cephalosporin Allergy: No Previous Colonoscopy: No Airway Assessment Mallampati Score:: Class II C-Spine Mobility Assessed: Yes TMJ Mobility Assessed: Yes Dentition: Good Dentition Neurological Assessment Level of Consciousness: Awake, Alert, Appropriate and Follows Commands Hx Seizures: No Numbness or tingling in extremities: No Anesthesia Plan Anesthesia Risk discussed: Yes ASA Class: I Anesthesia Type: General Preoperative Comments Pre-Operative Comments: C-sections X3. No General Anesthesia ever.
[2024-02-28] MEDS: LACTATED RINGERS 1000ML 1,000 ML 25 ML IV (08:21)
[2024-02-28] MEDS: METRONIDAZ/SOD CHL 500 MG/100 ML PIGGYBACK 100 MG IV (08:40)
[2024-02-28] MEDS: CEFAZOLIN SODIUM 2 GM in 0.9 % SODIUM CHLORIDE 100 ML IV (08:45)
[2024-02-28] MEDS: BUPIVACAINE 0.5% W/EPI 1:200,000 30ML VIAL 30 ML IJ (08:50)
[2024-02-28] MEDS: LIDOCAINE 1% W/EPI 1:100,000 20ML VIAL 20 ML (10:13)
[2024-02-28] MEDS: WATER FOR IRRIGATION,STERILE 1,000 ML 1000 ML IR (11:20)
--- NOTE | 2024-02-28 11:42 | P.PNANES_ITS ---
[facility] Anesthesia Record Part I Anesthesia Record I Intake, IV Amount: 1,400 Hydration: Adequate Estimated blood loss (mL): 100 Urine output (mL): 250 Blood Products used (#): none Blood Pressure: 137/81 SaO2: 95 Pulse Rate: 82 Airway Patency: Patent Respiratory Rate: 26 Temperature: 97.7 F Patient is:: Drowsy and Stable
[2024-02-28] MEDS: MORPHINE 2MG/ML SYRINGE 2 MG IV (11:43)
[2024-02-28 11:46] LABS: Microscopic,Cath URINE MICROSCOPIC (MICROSCOPIC)
[2024-02-28] MEDS: KETOROLAC 30MG/ML VIAL 30 MG IV ×3 (11:53→22:12)
--- NOTE | 2024-02-28 12:03 | P.HP_ITS ---
History of Present Illness *Admission Date: 02/28/24 *Reason for visit:: Hysterectomy *History of present illness: Violetta Briggs is a 33yo presenting today for a preoperative visit -She is still bleeding. States TXA has made it a little less heavy still desires definitive surgical management. Pt has symptomatic anemia from AUB. -Still using tobacco. -Hx 3 previous CS PFSH [facility] Disclaimer: The information contained in this section may have been updated after the patient was seen, as this information can be updated by other users. Medical History Gestational HTN Anemia No significant medical problems Surgical History History of section Family History Other Alcoholism Asthma Cancer Coronary artery disease Diabetes Hypertension Stroke Thyroid disorder Social History (Updated 02/28/24 @ 06:32 by Yusra Daigle RN) Smoking Status: Current every day smoker tobacco type: cigarettes packs per day: 1 second hand exposure: Yes alcohol intake: never substance use type: denies use current occupational status: employed Travel in the last 8 weeks: None household members: family housing: other current occupational exposures/hazards: No Review of Systems Review of Systems Review of systems (narrative): Const: Denies headaches, fever/chills, weakness Eyes: Denies change in vision Cardiorespiratory: Denies chest pain, shortness of breath, and cough GI: Denies abdominal pain, change in BM, nausea, vomiting, constipation, diarrhea : + AUB,. anemia; denies pelvic pain, genital lesions, vaginal itching and odor; denies leakage of urine, urinary urgency, frequency, dysuria and hematuria Denies depression and anxiety Meds Home Medications and Allergies Home Medications ?Medication ?Instructions ?Recorded ?Confirmed ?Type ferrous sulfate 325 mg (65 mg 325 mg PO DAILY #30 tabs 11/16/23 02/28/24 Rx iron) tablet tranexamic acid 650 mg tablet 650 mg PO TID PRN heavy period 02/27/24 02/28/24 History norethindrone 1.5 mg-ethinyl 1 tab PO DAILY 02/28/24 02/28/24 History estradiol 30 mcg(21)/iron 75 mg(7) tablet (Crystal Fe 1.5/30 (28)) New Prescriptions to Start Prescriptions: Allergies Allergy/AdvReac Type Severity Reaction Status Date / Time No Known Allergies Allergy Verified 02/28/24 06:29 Exam Data for Last 24 hours Vital signs and Labs for Last 24 Hours: Temp Pulse Resp BP Pulse Ox O2 Del Method O2 Flow Rate 97.7 F 68 16 134/62 92 L Nasal Cannula 3 02/28/24 11:44 02/28/24 11:57 02/28/24 11:57 02/28/24 11:57 02/28/24 11:57 02/28/24 11:57 02/28/24 11:57 I & O for Last 24 hours: Intake & Output 02/25/24 02/26/24 02/27/24 02/28/24 23:59 23:59 23:59 23:59 Intake Total 1400 / 1400 Balance 1400 / 1400 Weight 207 lb Narrative: Const: healthy appearing, NAD, well developed/nourished HEENT: No oral lesions Resp: Normal respiratory effort, no audible wheezing, symmetric chest rise Cardio: Regular rate GI: Abdomen soft, non-tender, non-distended. no guarding from previous exam : No vulvar/vaginal lesions Normal vaginal mucosa Heavy bleeding saturating the Chux pad Cervix normal appearing Uterus normal size, non-tender No adnexal masses palpated Normal appearance of the urethra Skin: No rash or visible lesion Neuro:No focal deficits Extrem: No visible deformity Psych: Normal mood and demeanor Constitutional Constitutional: no acute distress *Routine HEENT Exam Head: Present normocephalic Eye: Present EOMI and PERRL ENT: Present mucous membranes moist *Routine Neck Exam Neck: Present supple; Absent lymphadenopathy *Routine Respiratory Exam Respiratory: Present CTA bilaterally *Routine Cardiovascular Exam Cardiovascular: Present RRR *Routine Abdominal Exam Abdominal: Present soft and normoactive bowel sounds; Absent tenderness *Routine Rectal Exam Rectal:: deferred *Routine Genitalia Exam Genitalia:: deferred *Routine Extremities Exam Extremities: Absent cyanosis, clubbing or edema *Routine Skin Exam Skin: Present warm; Absent rash *Routine Neurological Exam Neurological: Present alert and oriented X3 Assessment and Plan *Assessment and plan (1) Abnormal uterine bleeding: Status: Acute Category: Medical Code(s): N93.9 - Abnormal uterine and vaginal bleeding, unspecified (2) Tobacco abuse: Status: Acute Category: Medical Code(s): Z72.0 - Tobacco use Plan #Pelvic organ prolapse -Notable for a grade 3 cystocele and grade 3 apical prolapse -Referral to pelvic floor PT made -Follow up on PFPT #Abnormal uterine bleeding #Microcytic anemia -EMB from 12/04/2023: Poorly active endometrium with fibrin thrombi and and a background of abundant peripheral blood suggestive of menstrual Steve M. Negative for atypia or malignancy -Pap smear from 11/16/2023: NILM, transformation zone absent -This delivery x 3 Plan for LAVH, bilateral salpingectomy, cystoscopy -TVUS: Uterus: 9.5 x 6.3 x 4.5 cm. The endometrium measures 24.7 mm. Retroflexed bulky uterus. Small nabothian cysts. Bilateral ovaries appear normal. -The patient is requesting definitive surgical management with hysterectomy. She declines continued medical intervention. Reviewed the risks of major gynecologic surgery with the pt to include bleeding, infection and risk of damage to surrounding structures. I assessed the patient's understanding from her last visit and she was able to review most of the risk that I reviewed with her at the last visit. She thoroughly understands the risk of hysterectomy. Discussed risks of bleeding and pt consented to blood transfusion if deemed medically necessary. Discussed risks of infection, states she has no allergies to antibiotics and we will use ancef for infection ppx. Discussed risks of injury to the surrounding structures to include her bowel, bladder, ureters, and neurovascular bundles. Discussed that this could require further surgeries and prolong recovery and hospital stay. Discussed risk of fistula formation. Discussed that she would stay overnight to ensure adequate pain control and that she met all postop milestones and pt agreed. She voiced understanding of all risks. I ensured she understood with teachback method of risks. Pt desires to proceed with LAVH, bilateral salpingectomy, Albrecht culdoplasty, and cystoscopy. possible MAX. -Infection prophylactic antibiotics ordered: Ancef 2g and 500 mg of IV metronidazole -Postoperative course reviewed with the patient and explained that she should anticipate staying in the hospital 1-2 days until meeting all DC criteria, and pain is well controlled.
--- NOTE | 2024-02-28 12:08 | P.OP_ITS ---
Date of procedure: 02/28/24 Pre-op Diagnosis:: 1. Abnormal uterine bleeding 2. Anemia 3. History of 3 prior deliveries Post-op Diagnosis:: 1. Abnormal uterine bleeding 2. Anemia 3. History of 3 prior deliveries 4. Etensive Adhesiolysis Procedure performed:: 1. Laparoscopic assisted vaginal hysterectomy 2. Bilateral salpingo-oophorectomy 3. Albrecht culdoplasty 4. Adhesiolysis 5. Cystoscopy Surgeon:: Maribel Gu DO Natural Resources Specialist(s):: Derick Francis MD SPRAY BLENDER:: Sam Haley Anesthesia: GETA Estimated blood loss (mL): 100 Operative findings:: 1. Uterine EUA was significant for 10wk size uterus. Grade 3 uterine descent was appreciated. No gross adnexal masses were appreciated. Exam limited by habitus 2. Laparoscopic exam revealed normal anatomy.? There were extensive adhesions of the bladder to the anterior uterine wall. There was a small omental adhesion to the anterior abdominal wall that was easily taken down at the start of the case. 3cm left ovarian cyst, fluid filled and fluctuant. No bowel injuries on entry. 3. Cystoscopy revealed brisk flow from both ureters Operative note:: Pt was taken back to the OR where GETA was obtained without difficulty. SCDs were placed and found to be working. The patient was placed in dorsal lithotomy position using yellow fin stirrups. The vagina and abdomen was prepped and draped in the normal sterile fashion. An indwelling catheter was placed and used to drain the bladder. Weighted speculum was inserted into the vagina to visualize the cervix. A single tooth tenaculum was used to grasp the anterior lip of the cervix and a Trista uterine manipulator was placed. Top gloves were removed and attention was turned to the abdominal portion.? Local anesthetic with epinephrine was injected infraumbilically, an 11mm infraumbilical incision was made sharply. Direct entry into the abdominal cavity was obtained with laparoscopic visualization. A intraabdominal pressure of 6mmHg was observed and CO2 gas was insufflated to create a pneumoperitoneum to a pressure of 15mmHg. The patient was placed in Trendelenburg to facilitate moving the bowel out of the operative field. A second 11mm incision was made to the left, lateral to the rectus muscles with attention to avoid vasculature. Trocar introduced under direct visualization. This process was repeated on the right. Brief abdominal exam revealed anatomy as described above, most concerning was that the bladder was immediately suspected to be adherent to the mid anterior uterus. The left fallopian tube was grasped at the fimbriated end. The ureters were visualized bilaterally and noted to be distal from the operative field. The LigaSure coagulation device was inserted and used to clamp, coagulate, and transect the fimbriated end of the fallopian tube. The round ligament was grasped, clamped and coagulated. The utero-ovarian ligament was clamped, coagulated, and transected. This process was repeated on the contralateral side. Just below the level of the round ligament on the right there were noted bladder adhesions throughout the pelvic sidewall. Images were obtained for the medical record. Greater than 90 minutes was spent with careful sharp dissection and adhesiolysis with the laparoscopic carmen to create a bladder flap. The bladder was backfilled to delineate the vesicouterine peritoneum and allow for safe dissection. The bladder flap was sharply completed through the midline. Electrocautery was not used to create the bladder flap. The posterior leaflet of the broad ligament was taken down bilaterally and the uterine vessels were skeletonized. The uterines were coagulated multiple times and the uterus was noted to ming. Attention was turned vaginally, a weighted speculum and Pennington retractor were used to identify the cervix. Two Fischer tenaculums were used to grasp the anterior and posterior lip of the cervix. 20mL of a solution made up of 1% lidocaine with epinephrine injected circumferentially around the cervix. Outward traction was applied to the cervix and a scalpel was used to make a circumferential colpotomy at the cervicovaginal junction. The incision was carried down to the paracervical fascia allowing the cervix to separate from the vaginal mucosa.? Pickups and Urbina scissors were used to initiate and complete dissection into the posterior colpotomy. A long weighted Silvia speculum was placed in the posterior colpotomy. The uterosacral ligaments were grasped with Elsa clamps, cut and suture ligated bilaterally. These were tagged to be incorporated into the vaginal cuff at a later time. Attention was turned to the anterior edge. Pickups and Metzenbaum scissors were used to initiate and complete dissection into the anterior colpotomy. A Pennington retractor was placed in the anterior colpotomy. A Jose Alejandro clamp was used to slide off the uterus, remaining proximal, clamp, cut and tied with 0 Vicryl the remaining attachments of the cardinal ligaments along with the lower branches of the uterine vessels. The uterus was enlarged and required posterior rotation to deliver the uterus from the vagina. A moist lap sponge was placed vaginally to retract the bowel. The posterior peritoneum was fixed to the posterior vaginal cuff with a running locking stitch. 0-PDS was used to place a Albrecht stitch for the culdoplasty, incorporating the bilateral uterosacral ligaments. The anterior peritoneum was grasped with an Ailyn clamp and pursestringed closed. The vaginal cuff was then closed with 0 Vicryl in a running locking fashion. Albrecht culdoplasty was tied to suspend the apex of the vagina. Hemostasis was noted. After changing gloves, the pneumoperitoneum was reestablished, laparoscope was placed and inspection of the cuff. Irrigation of the surgical site and suction reveal hemostasis, images obtained. Brief abdominal survey revealed a normal appearing liver and abdomen. Pedicals and cuff reinspected and noted to be hemostatic.? The abdominal incisions were closed with a deep single interrupted 0 Vicryl followed by a subcuticular 4-0 Monocryl and Dermabond was placed over the incision. Cystoscopy: The patient was removed from Trendelenburg. A 70degree cystoscope was inserted into the urethra. The bladder was distended with sterile water. The guillermo of the bladder were inspected and noted to be intact, free of any sutures, gross masses or abnormal vasculature. Air bubble was noted at the dome of the bladder. Ureteral flow was immediately noted bilaterally. Sponge, instrument and needle counts were correct x3, per nursing. Condition: stable Disposition: floor Specimens:: Uterine body, cervix, & bilateral fallopian tubes Complications:: None
--- NOTE | 2024-02-28 12:14 | PC.NURSE ---
Patient arrived to the unit at this time via hospital bed, accompanied by 2 OR staff.
[2024-02-28 12:26] LABS: Appearance,Urine/Cath CLEAR (Clear); Bilirubin,Cath Negative (Negative); Blood, Urine/Cath Negative (Negative); Color,Urine/Cath YELLOW (Yellow); Glucose,Urine/Cath (UA) Negative (Negative); Ketones,Urine/Cath Negative (Negative); Leukocyte Esterase,Cath Negative (Negative); Nitrate,Cath Negative (Negative); PH,Urine/Cath 5.5 (5.0-8.5); Protein,Urine/Cath TRACE (Negative); Specific Gravity, Urine/Cath >= 1.030 (1.005-1.030); Urobilinogen,Cath 0.2 EU/dl (0.2)
[2024-02-28 12:41] LABS: Bacteria,Urine/Cath 1+ /lpf; RBC,Urine/Cath Occasional # /hpf (0-3)
[2024-02-28] MEDS: ONDANSETRON 4MG/2ML VIAL 4 MG IV (12:41)
[2024-02-28] MEDS: HYDROMORPHONE 2MG/ML SYRINGE 2 MG IV (12:41)
[2024-02-28] MEDS: ACETAMINOPHEN 500MG TAB 1000 MG PO ×2 (13:32→22:12)
[2024-02-28] MEDS: LACTATED RINGERS 1000ML 1,000 ML 125 ML IV (13:32)
[2024-02-28] MEDS: SODIUM CHLORIDE 0.9% 25ML BAG 25 ML IV (13:41)
[2024-02-28] MEDS: PROMETHAZINE HCL 25MG/ML 1ML VIAL 12.5 MG IV (13:41)
[2024-02-29] MEDS: KETOROLAC 30MG/ML VIAL 30 MG IV (04:54)
[2024-02-29] MEDS: ACETAMINOPHEN 500MG TAB 1000 MG PO (04:54)
[2024-02-29 05:02] VITALS: BP 124/59; PULSE 80; RESP 16; TEMP 36.8; O2SAT 97
[2024-02-29 07:00] LABS: Chloride 109 mmol/L (98-107); Sodium 137 mmol/L (136-145)
[2024-02-29 07:01] LABS: Potassium 3.9 mmoL/L (3.5-5.1)
[2024-02-29 07:02] LABS: Basophils % 0.3 % (0.1-2.0); Eosinophils # 0.1 K/mm3 (0.0-0.4); Eosinophils % 0.9 % (0.1-12.0); Hematocrit 29.6 % (37.0-47.0); Hemoglobin 8.9 g/dL (12.2-16.2); Lymphocytes # 1.7 K/mm3 (0.7-4.5); Lymphocytes % 20.1 % (10-50); Mean Corpuscular HGB Conc 29.9 g/dL (31.8-35.4); Mean Corpuscular Hemoglobin 22.5 pg (27.0-31.2); Mean Corpuscular Volume 75.1 fl (81-99); Mean Platelet Volume 10.2 fl (7.4-10.4); Monocytes # 0.4 K/mm3 (0.1-1.0); Neutrophils # 6.3 K/mm3 (1.8-7.8); Neutrophils % 73.8 % (37.0-80.0); Platelet Count 192 K/mm3 (142-424); Red Blood Count 3.94 M/mm3 (4.20-5.40); Red Cell Distribution Width 19.2 % (11.5-17.5); White Blood Count 8.5 K/mm3 (4.8-10.8)
[2024-02-29 07:03] LABS: Blood Urea Nitrogen 9 mg/dl (7-17); Creatinine Clearance Estimated 145 mL/min (50-200); Estimated Glomerular Filt Rate 82 ml/min (>60); GFR (African American) 99 ML/MIN (>60)
[2024-02-29 07:04] LABS: Anion Gap 2.9 mEq/L (5-15); Calcium 7.7 mg/dl (8.4-10.2); Carbon Dioxide 29 mmol/L (22.0-30.0); Glucose 99 mg/dl (74-100)
[2024-02-29 08:15] VITALS: BP 135/63; PULSE 66; RESP 17; TEMP 36.8; O2SAT 97
[2024-02-29 08:25] VITALS: O2SAT 97
--- NOTE | 2024-02-29 08:31 | P.DS_ITS ---
General Admission date:: 02/28/24 Discharge date: 02/29/24 HPI HPI HPI: Violetta Briggs is a 33yo presenting today for a preoperative visit -She is still bleeding. States TXA has made it a little less heavy still desires definitive surgical management. Pt has symptomatic anemia from AUB. -Still using tobacco. -Hx 3 previous CS Hospital Course Hospital Course Hospital Course: Violetta Booth is a 33-year-old postop day #1 from a LAVH, bilateral salpingectomy, Albrecht culdoplasty, and cystoscopy. 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 She is doing well this morning. Reports her pain is adequately controlled, she is ambulating, voiding, and tolerating p.o. without difficulty or dysuria. She denies any nausea or vomiting. She is passing gas. She desires discharge home. Routine discharge instructions reviewed with patient in detail and she voiced understanding. I did discuss the case with her. Discussed the difficulty of the bladder scarring to the anterior uterine wall. Discussed suspected adenomyosis. We also reviewed that she had apical prolapse which is why the Albrecht culdoplasty was completed. I again encouraged her to schedule appointments with pelvic floor physical therapy. Will follow-up on the vaginal support defects at her postop visits. Patient voiced understanding. Will review her pathology at her follow-up appointment in 2 weeks. Exam Data for Last 24 hours Vital signs and Labs for Last 24 Hours: Temp Pulse Resp BP Pulse Ox O2 Del Method O2 Flow Rate 98.2 F 66 17 135/63 97 Room Air 3 02/29/24 08:15 02/29/24 08:15 02/29/24 08:15 02/29/24 08:15 02/29/24 08:25 02/29/24 08:25 02/28/24 12:30 Laboratory Results - last 24 hr 02/28/24 09:30: Urine Color Yellow, Urine Appearance Clear, Urine pH 5.5, Ur Specific Toutle >= 1.030, Urine Protein Trace, Urine Glucose (UA) Negative, Urine Ketones Negative, Urine Blood Negative, Urine Nitrate Negative, Urine Bilirubin Negative, Urine Urobilinogen 0.2, Ur Leukocyte Esterase Negative, Urine RBC Occasional, Urine WBC 3-5, Ur Squamous Epith Cells 5-10, Urine Bacteria 1+ 02/29/24 06:39: WBC 8.5, RBC 3.94 L, Hgb 8.9 L, Hct 29.6 L, MCV 75.1 L, MCH 22.5 L, MCHC 29.9 L, RDW 19.2 H, Plt Count 192, MPV 10.2, Neut % (Auto) 73.8, Lymph % (Auto) 20.1, Gilmer % (Auto) 5.0, Eos % (Auto) 0.9, Baso % (Auto) 0.3, Neut # (Auto) 6.3, Lymph # (Auto) 1.7, Gilmer # (Auto) 0.4, Eos # (Auto) 0.1, Baso # (Auto) 0.0, Sodium 137, Potassium 3.9, Chloride 109 H, Carbon Dioxide 29, Anion Gap 2.9 L, BUN 9, Creatinine 0.80 D, Estimated Creat Clear 145, Estimated GFR 82, Est GFR ( Amer) 99 D, Glucose 99, Calcium 7.7 L I & O for Last 24 hours: Intake & Output 02/26/24 02/27/24 02/28/24 02/29/24 23:59 23:59 23:59 23:59 Intake Total 1400 / 1400 Output Total 300 / 300 300 / 300 Balance 1100 / 1100 -300 / -300 Weight 207 lb Constitutional Constitutional: no acute distress *Routine HEENT Exam Head: Present normocephalic Eye: Present EOMI and PERRL ENT: Present mucous membranes moist *Routine Neck Exam Neck: Present supple; Absent lymphadenopathy *Routine Respiratory Exam Respiratory: Present CTA bilaterally *Routine Cardiovascular Exam Cardiovascular: Present RRR *Routine Abdominal Exam Abdominal: Present soft and normoactive bowel sounds; Absent tenderness *Routine Extremities Exam Extremities: Absent cyanosis, clubbing or edema *Routine Skin Exam Skin: Present warm; Absent rash Comments: laparoscopic incisions appear to be healing well and covered in dermabond without signs of bleeding or infection *Routine Neurological Exam Neurological: Present alert and oriented X3 Results Data Completed and Pending Labs on day of discharge: Labs from last 24 hours 02/29/24 02/28/24 06:39 09:30 WBC 8.5 RBC 3.94 L Hgb 8.9 L Hct 29.6 L MCV 75.1 L MCH 22.5 L MCHC 29.9 L RDW 19.2 H Plt Count 192 MPV 10.2 Neut % (Auto) 73.8 Lymph % (Auto) 20.1 Gilmer % (Auto) 5.0 Eos % (Auto) 0.9 Baso % (Auto) 0.3 Neut # (Auto) 6.3 Lymph # (Auto) 1.7 Gilmer # (Auto) 0.4 Eos # (Auto) 0.1 Baso # (Auto) 0.0 Sodium 137 Potassium 3.9 Chloride 109 H Carbon Dioxide 29 Anion Gap 2.9 L BUN 9 Creatinine 0.80 D Estimated Creat Clear 145 Estimated GFR 82 Est GFR ( Amer) 99 D Glucose 99 Calcium 7.7 L Urine Color Yellow Urine Appearance Clear Urine pH 5.5 Ur Specific Toutle >= 1.030 Urine Protein Trace Urine Glucose (UA) Negative Urine Ketones Negative Urine Blood Negative Urine Nitrate Negative Urine Bilirubin Negative Urine Urobilinogen 0.2 Ur Leukocyte Esterase Negative Urine RBC Occasional Urine WBC 3-5 Ur Squamous Epith Cells 5-10 Urine Bacteria 1+ DS: Diagnosis Discharge Diagnosis (1) Abnormal uterine bleeding: Status: Acute Code(s): N93.9 - Abnormal uterine and vaginal bleeding, unspecified (2) Tobacco abuse: Status: Acute Code(s): Z72.0 - Tobacco use Meds Home Medications and Allergies Home Medications ?Medication ?Instructions ?Recorded ?Confirmed ?Type ferrous sulfate 325 mg (65 mg 325 mg PO DAILY #30 tabs 11/16/23 02/28/24 Rx iron) tablet acetaminophen 500 mg tablet 500 mg PO Q6H PRN fever or pain 02/29/24 Rx #30 tabs ibuprofen 800 mg tablet 800 mg PO Q8H PRN pain #60 tabs 02/29/24 Rx oxycodone 5 mg tablet 5 mg PO Q8H PRN pain #20 tabs 02/29/24 Rx sennosides 8.6 mg tablet (Senna 8.6 mg PO BIDP PRN Constipation 02/29/24 Rx Lax) #60 tabs simethicone 125 mg tablet 125 mg PO DAILY PRN abdominal 02/29/24 Rx distention #60 tabs New Prescriptions to Start Prescriptions: acetaminophen Riccardo,Maribel ibuprofen Riccardo,Maribel oxycodone RiccardoMaribel torrez sennosides [Senna Lax] Riccardo,Maribel simethicone Maribel Gu Allergies Allergy/AdvReac Type Severity Reaction Status Date / Time No Known Allergies Allergy Verified 02/28/24 06:29 Discharge Plan Disposition Patient Disposition: Home, Self-Care Follow up Plan Follow up with: Maribel Gu DO [Staff Physician] - 2 weeks Prescriptions/Medication Reconciliation: New sennosides [Senna Lax] 8.6 mg Tablet 8.6 mg PO BIDP PRN (Reason: Constipation) Qty: 60 2RF ibuprofen 800 mg tablet 800 mg PO Q8H PRN (Reason: pain) Qty: 60 2RF acetaminophen 500 mg tablet 500 mg PO Q6H PRN (Reason: fever or pain) Qty: 30 3RF oxycodone 5 mg tablet 5 mg PO Q8H PRN (Reason: pain) Qty: 20 0RF simethicone 125 mg tablet 125 mg PO DAILY PRN (Reason: abdominal distention) Qty: 60 2RF Continued ferrous sulfate 325 mg (65 mg iron) tablet 325 mg PO DAILY Qty: 30 2RF Problem Reconciliation Problems Reviewed?: Yes Patient Discharge Instructions ACTIVITY: Continue current activity DIET: regular diet Additional Instructions: Hysterectomy Discharge You had a laparoscopic assisted vaginal hysterectomy, bilateral salpingectomy, and cystoscopy. This means we removed your uterus, cervix, and both fallopian tubes. We also used a camera to look in your bladder after the surgery and there were no problems with your bladder wall or ureters. There were no complications with your surgery. The top of your vagina is closed with dissolvable sutures. Removing your fallopian tubes decreases your lifetime risk of ovarian cancer. You will follow-up in office for a postop visit at 2 weeks and at 6 weeks. At your 6-week postop appointment you will have a pelvic exam to ensure your cuff is healing well. We have called several medications in for you and they are detailed below as well as discharge instructions. If you have any questions, please call the office. Activity: - No lifting more than 15 lbs for 6 weeks. - No driving while you are taking narcotic pain medication. - You have 3 incisions on your abdomen that are closed with stitches and surgical glue. The glue should come off within 2 weeks. You can scrub gently in the shower Wound care - You have surgical glue covering your incision. This will come off on its own within 1-2 weeks - You have stitches under your skin which will dissolve over the next 4-6 weeks as your body heals - Keep your wound clean and dry, ok to wash with soap and water but pat thoroughly dry Medications: - Ibuprofen (a nonsteroidal anti-inflammatory) for pain. Please take the ibuprofen scheduled for the first 2-3 days as this will help control your pain - Oxycodone (a narcotic pain medication) use the narcotic pain medication for breakthrough or severe pain. You will want to stop the narcotic pain medication first. Narcotic pain medication can be habit forming so please only use this medication if you need it. - Senna (a stool softener) use this medication for constipation as needed. Narcotics can increase your risk for constipation - Simethicone: a gas medication for bloating and gas pain you may experience in the next 1-2 weeks. Please call the office or return to the ER if you have any of the followin. bleeding more than 1 pad an hour for 2 hours 2. pain that does not respond to your narcotic pain medication 3. dizziness or lightheadedness such that you lose consciousness 4. abnormal discharge that looks like pus from your incisions Questions or concerns: It is my privilege to be your doctor. Please let me know if you have other questions or concerns. Maribel Gu DO [facility] Specialist [place], [place] [address] Patient Instructions: DI for Vaginal Hysterectomy Print Language: Cymraes Providers Primary Care Provider: Boyd Dallas Admit Provider: Maribel Gu Attending Provider: Maribel Gu
[2024-02-29] MEDS: FERROUS SULFATE 325MG TABLET 325 MG PO (08:48)
[2024-02-29] MEDS: ENOXAPARIN 40MG/0.4ML SYRINGE 40 MG SQ (08:49)
--- NOTE | 2024-02-29 09:21 | EXP.ANES.II ---
[facility] Anesthesia Record Part II Anesthesia Record Part II Discharge Time: 12:07 Destination: Obstetric PACU nurse assessment reviewed?: Yes Patient Condition:: Good Anesthesia Complications:: None Swallowing reflex intact?: Yes Airway Patency: Patent Cyanosis?: No Blood Pressure: 127/63 SaO2: 93 Respiratory Rate: 16 Pulse Rate: 66 Temperature: 97.5 F Mental Status: Alert & Oriented Pain level:: 0 Nausea and/or vomitting:: None Intake, IV Amount: 0 Hydration: Adequate
[2024-02-29 09:22] VITALS: BP 127/63; PULSE 66; RESP 16; TEMP 36.4; O2SAT 93
--- NOTE | 2024-02-29 10:14 | PC.NURSE ---
0955 - Discharge teaching provided to patient. Pt v/u. 1002 - Pt stable and in good condition, taken off unit via wheelchair by RN to vehicle. Family member x2 present.
== END 2024-02-29 10:02 | disposition home or self-care (01) ==
LOC: OB 06:29
PROVIDERS: Admitting Provider Obstetrics & Gynecology; PCP Family Medicine; Visit Provider Obstetrics & Gynecology
PROC: 0UT9FZZ Resection of Uterus, Via Natural or Artificial Opening With Percutaneous Endoscopic Assistance (ICD-10-PCS; CPT 58552; principal; 2024-02-28 08:15)
DX: N93.9 Abnormal uterine and vaginal bleeding, unspecified (principal); F17.210 Nicotine dependence, cigarettes, uncomplicated; D64.9 Anemia, unspecified; N73.6 Female pelvic peritoneal adhesions (postinfective); N32.89 Other specified disorders of bladder
CPT/HCPCS: 58552; 57268; 49329; 36415; 80048; 81001; 85025; 94761; J3490; G0283; G0378; J1100; J1170; J1650; J1885; J2250; J2270; J2405; J2550; J3010; J7120

== ENCOUNTER 2024-03-22 11:22 | Emergency (ER) | payer OTHER, SELFPAY ==
[2024-03-22 11:23] VITALS: BP 140/93; PULSE 82; RESP 13; TEMP 36.4; O2SAT 98; BMI 37.8
[2024-03-22 11:30] VITALS: BP 146/91; PULSE 74; O2SAT 95
--- NOTE | 2024-03-22 11:32 | PC.NURSE ---
Dr. Roman at [facility] for pt eval
--- NOTE | 2024-03-22 11:38 | [facility].EDGENADL ---
Discharge Plan Disposition Patient Disposition: Home, Self-Care Condition: Good Prescriptions Prescriptions: New naproxen 500 mg tablet 500 mg PO BID Qty: 20 0RF diclofenac sodium [Arthritis Pain (diclofenac)] 1 % gel 2 g topical QID Qty: 100 0RF Rx Instructions: apply to single elbow, wrist or hand; for hand includes palm/fingers/back of hand No Action ferrous sulfate 325 mg (65 mg iron) tablet 325 mg PO DAILY Qty: 30 2RF Referrals Follow up/Referrals: Provider,Referral, [Primary Care Provider] - See instructions Activity Restrictions/Add. Instructions Additional Instructions/Restrictions: You were evaluated in the emergency department today. 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 Take Tylenol every 4-6 hours as needed for pain as well. Use your crutches to help offload weight from your leg. Follow-up closely with your primary care provider over the next week. Return to the emergency department for new or worsening symptoms. Clinical Impressions Clinical Impression: Achilles tendinitis Stand Alone Forms Stand Alone Forms: Work/School Release Instructions Patient Instructions: DI for Achilles Tendinopathy Print Language Print Language: Guatem[place] Discharge ED Provider: Liz Roman General Adult HPI General Chief complaint: PAIN Stated complaint: right foot pain, no accident Time Seen by Provider: 03/22/24 11:27 Mode of Arrival: Wheelchair Source of Information: Patient Limitations: No Limitations Description of Symptoms (Recalled from ER Triage Doc. by RN): pt presents to ED with c/o right heel pain. pt reports symptoms began . yesterday pain become worse. pt reports pain worse with ambulation. pain with ROM movements. + pulse/sensation in right foot. no falls or injury known to pt. History of Present Illness HPI narrative: This patient is a 33-year-old female with history of tobacco dependence presenting to the emergency department for evaluation with concern for atraumatic right heel pain. Patient states that she has had progressively worsening pain in her right heel since yesterday. She notes is worse with walking and movement as well as with palpation. No fevers or infectious symptoms. No known falls or traumatic injuries. No numbness, tingling, or other concerns. Related Data Previous Rx's ?Medication ?Instructions ?Recorded ferrous sulfate 325 mg (65 mg 325 mg PO DAILY #30 tabs 11/16/23 iron) tablet diclofenac sodium 1 % topical gel 2 g topical QID #100 grams 03/22/24 (Arthritis Pain (diclofenac)) naproxen 500 mg tablet 500 mg PO BID #20 tabs 03/22/24 Allergies Allergy/AdvReac Type Severity Reaction Status Date / Time No Known Allergies Allergy Verified 03/13/24 09:47 [facility] Disclaimer: The information contained in this section may have been updated after the patient was seen, as this information can be updated by other users. Medical History Gestational HTN Anemia No significant medical problems Surgical History History of LAVH History of section Family History Other Alcoholism Asthma Cancer Coronary artery disease Diabetes Hypertension Stroke Thyroid disorder Social History Smoking Status: Current every day smoker tobacco type: cigarettes packs per day: 1 second hand exposure: Yes alcohol intake: never substance use type: denies use current occupational status: employed Travel in the last 8 weeks: None household members: family housing: other current occupational exposures/hazards: No do you feel safe at home: Yes victim of physical abuse: No victim of emotional abuse: No victim of sexual abuse: No ROS Obtained: Yes All systems reviewed & no additional complaints except as documented Physical Exam General General appearance: alert and in no apparent distress Head Head exam: atraumatic and normocephalic Eye Eye exam: Present normal appearance, PERRL and EOMI ENT ENT exam: Present normal exam, normal oropharynx, mucous membranes moist and normal external ear exam Neck Neck exam: Present normal inspection, full ROM and trachea midline; Absent tenderness Chest Chest inspection: Present normal inspection and symmetric chest wall rise; Absent tenderness Respiratory Respiratory exam: Present normal lung sounds bilaterally; Absent respiratory distress, wheezes, stridor or accessory muscle use Cardiovascular Cardiovascular exam: Present regular rate and normal rhythm Abdominal Exam Abdominal exam: Present soft; Absent distention, tenderness or guarding Extremities Exam Extremities exam: Present full ROM, tenderness (Tenderness to palpation of the right Achilles tendon with no significant overlying skin color changes, swelling, redness, or warmth. Intact range of motion of the right ankle.), normal capillary refill and other (Neurovascularly intact distally.); Absent edema Back Exam Back exam: Present normal inspection and full ROM; Absent tenderness Neurological Exam Neurological exam: Present alert, oriented X3, CN II-XII intact and normal gait; Absent motor sensory deficit Psychiatric Psychiatric exam: Present normal affect and normal mood Skin Skin exam: Present warm and dry Medical Decision Making Medical Records Medical records reviewed: Yes I reviewed the patient's medical records. Brian Inquiry Pt receiving controlled substance: No Vital Signs: 03/22/24 11:23 Temperature 97.6 F Temperature Source Oral Pulse Rate [Left Radial] 82 Respiratory Rate 13 Blood Pressure [Right Arm] 140/93 H Blood Pressure Mean [Right Arm] 108 02 Sat by Pulse Oximetry 98 Oxygen Delivery Method Room Air Lab Data Lab results reviewed: Yes I reviewed the patient's lab results. Orders (Tests/Meds): ED MEDICATIONS Discontinued Medications Generic Name Dose Route Start Last Admin Trade Name Freq PRN Reason Stop Dose Admin Acetaminophen 1,000 mg 03/22/24 11:35 Acetaminophen 500mg Tab PO 03/22/24 11:36 ONCE ONE Dexamethasone 10 mg 03/22/24 11:35 Dexamethasone 4mg Tablet PO 03/22/24 11:36 ONCE ONE Ketorolac Tromethamine 30 mg 03/22/24 11:35 Ketorolac 30mg/Ml Vial IM 03/22/24 11:36 ONCE ONE Lidocaine 1 each 03/22/24 11:35 Lidocaine 5% Transdermal Patch TP 03/22/24 11:36 ONCE ONE Medical Decision Narrative: In summary, this patient is a 33-year-old female presenting to the Emergency Department for evaluation of right heel pain. Differential diagnoses considered include but are not limited to bone spur, plantar fasciitis, Achilles tendinopathy, musculoskeletal strain/sprain, stress fracture. Ruling out the most morbid conditions drove assessment. It should be noted patient's history includes tobacco dependence which is not at goal therapy. This complicates all aspects of care by increasing patient's risk for morbidity. On exam, the patient is very well-appearing and is neurovascularly intact. She has tenderness to palpation of her right Achilles tendon but no other abnormal findings. Intact range of motion, no significant ankle joint effusion. Ultimately, feel she has Achilles tendinopathy. I considered obtaining x-ray, however given absence of traumatic injury or significant bony tenderness, I do not feel this is indicated as it would likely not tire changer. Ultimately, patient was given IM Toradol, oral dexamethasone, and a topical Lidoderm patch and was deemed to be appropriate for discharge home with prescriptions for anti-inflammatories to treat Achilles tendinopathy. She was given instructions for close outpatient follow-up, strict return precautions, and she was discharged after all questions were answered. She was given crutches to help offload weight to allow for healing of her Achilles tendon. Critical Care Critical Care Time Critical Care Time: No
[2024-03-22] MEDS: DEXAMETHASONE 4MG TABLET 10 MG PO (11:43)
[2024-03-22] MEDS: KETOROLAC 30MG/ML VIAL 30 MG IM (11:43)
[2024-03-22] MEDS: LIDOCAINE 5% TRANSDERMAL PATCH 1 EACH TP (11:43)
[2024-03-22] MEDS: ACETAMINOPHEN 500MG TAB 1000 MG PO (11:43)
[2024-03-22 11:45] VITALS: BP 155/91; PULSE 80; O2SAT 95
[2024-03-22 12:00] VITALS: BP 155/91; PULSE 80; RESP 18; TEMP 36.4; O2SAT 99
== END 2024-03-22 12:01 | disposition home or self-care (01) ==
PROVIDERS: Emergency Provider Emergency Medicine
DX: M76.61 Achilles tendinitis, right leg (principal); F17.210 Nicotine dependence, cigarettes, uncomplicated; M79.671 Pain in right foot
CPT/HCPCS: 96372; 99283; J1885; J8540